=== PATIENT | female | born 2005 | race African-American/Black ===

== ENCOUNTER 2025-06-14 16:23 | Emergency (ER) | payer OTHER, SELFPAY ==
--- OUTSIDE RECORDS SUMMARY | 2024-07-07 06:00 | XMS_ITS ---
Author Organization [facility] vices Address [address] [place], [place] [address] Care Team Providers Care Sand Buffer Name Role Phone Jazmin Garg Primary Care Provider [phone] Kassi James [phone] REASON FOR VISIT 3 mo Asthma Social History Sex Assigned At : Social History Observation Description Sex Assigned At Female Encounters Encounter Location Date Provider Diagnosis Main [address] [place] [address] 07/07/2024 Jazmin Garg Plan Of Treatment No Information Progress Notes * Windy ESTRELLA DDOB: 4 (20 yo F)Acc No.[id number]:07/07/2024 Medical Note Patient: Windy Romero :?LEATHA JaraCDOB:2005???Age:19 Y ???Sex:FemaleDate:07/07/2024hone:[phone]:[address] [place], [place] Subjective: * Chief Complaints: * 3 mo Asthma Billing Information: * Procedure Codes: * Electronic signature of ELENITA Jara on 06/14/2025 at 05:06 PM EST Sign off status: Pending * Provider: ELENITA Coronado Date: 09/07/2023 Generated for Printing/Faxing/eTransmitting on:?06/14/2025 05:06 PM EST
--- OUTSIDE RECORDS SUMMARY | 2024-07-20 06:00 | XMS_ITS ---
Author Organization [facility] vices Address [address], [place] [address] Care Team Providers Care Press Operator Apprentice Name Role Phone Jazmin Garg Primary Care Provider Kassi James Unavailable [phone] Mae Goncalves Unavailable [phone] REASON FOR VISIT F/U- Asthma Social History Sex Assigned At : Social History Observation Description Sex Assigned At Female Encounters Encounter Location Date Provider Diagnosis Main [address] [address] 07/20/2024 Mae Goncalves Plan Of Treatment No Information Progress Notes * Windy ESTRELLA DDOB: [birth year] (20 yo F)Acc No.[id number]:07/20/2024 Medical Note Patient: Windy Romero :?Mae GoncalvesDOB:2005???Age:19 Y???Sex: FemaleDate:07/20/2024Phone:[phone]:[address] [facility]Pcp:Jazmin Garg Subjective: * Chief Complaints: * F /U- Asthma Billing Information: * Procedure Codes: * Electronic signature of SANAM Irene on 06/14/2025 at 05:05 PM ESTSign off status: Pending * Provider: Naren Goncalves Date: 0 07/20/2024 Generated for Printing/Faxing/eTransmitting on:?06/14/2025 05:05 PM EST
--- OUTSIDE RECORDS SUMMARY | 2025-04-13 04:15 | XMS_ITS ---
Author Organization [facility] vices Address [address] [place], [place] [address] Care Team Providers Care Sausage Machine Operator Name Role Phone Jazmin Garg Primary Care Provider Kassi James [phone] REASON FOR VISIT Wellness Social History Sex Assigned At : Social History Observation Description Sex Assigned At Female Encounters Encounter Location Date Provider Diagnosis Main [address], [place] [address] 04/13/2025 Jazmin Garg Plan Of Treatment No Information Progress Notes * Windy ESTRELLA DDOB: [birth year] (20 yo F)Acc No.[id number]:04/13/2025 Progress Notes Patient: Windy Romero :?LEATHA JaraCDOB:2005???Age:19 Y ???Sex:FemaleDate:04/13/2025Phone:[phone]:[address] [facility] [address] [place], [place] Subjective: * Chief Complaints: * W ellness * Electronic signature of ELENITA Jara on 06/14/2025 at 05:06 PM EST Sign off status: Pending * Provider: ELENITA Coronado Date: Generated for Printing/Faxing/eTransmitting on:?06/14/2025 05:06 PM EST
--- OUTSIDE RECORDS SUMMARY | 2025-05-15 10:00 | XMS_ITS ---
Author Organization [facility] vices Address [address], [place] [address] Care Team Providers Care Epic Stork Specialists Name Role Phone Jazmin Garg Primary Care Provider [phone] Kassi James [phone] REASON FOR VISIT Wellness Social History Sex Assigned At : Social History Observation Description Sex Assigned At Female Encounters Encounter Location Date Provider Diagnosis Main [address], [place] [address] 05/15/2025 Jazmin Garg Plan Of Treatment No Information Progress Notes * Windy ESTRELLA DDOB: [birth year] (20 yo F)Acc No.[id number]:05/15/2025 Medical Note Patient: Windy Romero :?LEATHA JaraCDOB:2005???Age:19 Y ???Sex:FemaleDate:05/15/2025Phone:[phone]:[address] [facility] [place], [place] Subjective: * Chief Complaints: * W ellness Billing Information: * Procedure Codes: * Electronic signature of ELENITA Jara on 06/14/2025 at 05:06 PM EST Sign off status: Pending * Provider: ELENITA Coronado Date: 07/15/2024 Generated for Printing/Faxing/eTransmitting on:?06/14/2025 05:06 PM EST
[2025-06-14 16:29] VITALS: PULSE 75; TEMP 36.6; O2SAT 96; BMI 25.0
--- NOTE | 2025-06-14 16:41 | ED.PREGNANC1 ---
HPI - General Chief complaint: Nausea/Vomiting/Diarrhea Stated complaint: nausea, vomiting, Time Seen by Provider: 06/14/25 16:42 Source: patient Mode of arrival: walk-in Limitations: no limitations History of Present Illness HPI Narrative: Patient complains of nausea and vomiting in . Patient's last menstrual period was in April. She has an ultrasound scheduled this Thursday. After the ultrasound she will follow-up with [facility]. Patient has never been before. She does not know what her blood type is. She denies any urinary burning frequency or urgency. She has clear vaginal discharge. She denies any vaginal odor. Patient states she was seen at [facility] a few weeks ago. She was given Zofran tablets that dissolved. She states they helped a little. She is out of them. She states sometimes she would still vomit even when she used them. She is currently living with her sister. Onset (ago): week(s) Pain Consistency: Reports intermittent Severity: mild Relieving factors: Reports none Exacerbating factors: Reports eating Vaginal discharge: Reports clear Vaginal bleeding: Reports none Date of last menstrual period: April Patient : Yes care: none Related Data : 0 Para: 0 Total number of abortions (spontaneous and elective): 0 Previous Rx's ?Medication ?Instructions ?Recorded bacitracin 500 unit/gram eye 0.25 inch ophthalmic (eye) Q8H 06/14/25 ointment stye #3.5 grams metoclopramide HCl 10 mg tablet 10 mg PO Q6H PRN nausea and 06/14/25 vomiting #20 tabs ondansetron 4 mg disintegrating 4 mg PO Q6H PRN nausea and 06/14/25 tablet vomiting #20 tabs Allergies Allergy/AdvReac Type Severity Reaction Status Date / Time No Known Drug Allergies Allergy Verified 06/14/25 16:32 Review of Systems ROS Status of ROS 10 or more systems reviewed and unremarkable except as noted in history and below Gastrointestinal Reports: nausea and vomiting PFSH PFSH Social History Little interest or pleasure in doing things: not at all Feeling down, depressed, or hopeless: not at all Exam Constitutional Vital Signs, click to edit/add: Last Vital Signs Temp 97.9 F 06/14/25 16:29 Pulse 75 12/03/25 16:29 Resp 14 06/14/25 16:29 BP 128/59 06/14/25 16:50 Pulse Ox 96 06/14/25 16:29 O2 Del Method Room Air 06/14/25 16:29 Documenting provider has reviewed patient's vital signs: yes Common normals: no apparent distress, average body habitus, oriented x3, no limitations, healthy appearing, alert and well nourished General appearance: cooperative, comfortable, well kempt and well developed Orientation/consciousness: Yes awake, Yes oriented to person, Yes oriented to place and Yes oriented to time HENMT Common normals: normocephalic, head/scalp atraumatic, hearing grossly normal bilaterally, external ears normal, EACs normal, TMs normal bilaterally and external nose normal Head and scalp: normal to inspection, normocephalic and atraumatic Face and sinus: normal facial exam Nose: external nose normal External ear: external ears normal Tympanic membrane: TMs normal bilaterally Mouth: oral and palatal mucosa normal Throat: posterior oropharynx normal Eye Common normals: PERRL General eye: normal appearance of both eyes (Pt has stye R lower lid) Course Course Hospital Course: The patient was interviewed and examined. The appropriate ER workup was initiated. Patient had saline lock established. Patient is given 1 L normal saline wide open. Patient was given ondansetron intravenously. After about half liter fluids, patient was able to tolerate p.o. intake. I discussed with the patient the plan for ODT ondansetron at discharge. I discussed with her once she has been able to tolerate that, she can then take oral Reglan as needed for additional nausea. She was in agreement with this plan of care. Patient has upcoming ultrasound on Thursday and then follow-up with [facility] after that. In regards to the hordeolum on the right eye, I discussed with her the use of antibiotic ointment for treatment of that. Patient voiced understanding for care of that problem. Upon completion of fluids, patient is feeling much better and is ready to be discharged to home. Patient will be discharged home in stable condition. She is to return to the emergency department for any further problems or concerns. Vital Signs Vital signs: Vital Signs Temperature 97.9 F 06/14/25 16:29 Pulse Rate 75 06/14/25 16:29 Respiratory Rate 14 06/14/25 16:29 Pulse Oximetry 96 06/14/25 16:29 Oxygen Delivery Method Room Air 06/14/25 16:29 Temperature 97.9 F 06/14/25 16:29 Pulse Rate 75 06/14/25 16:29 Respiratory Rate 14 06/14/25 16:29 Blood Pressure 128/59 06/14/25 16:50 Pulse Oximetry 96 06/14/25 16:29 Oxygen Delivery Method Room Air 06/14/25 16:29 MDM - OB/Uterine Contractions Lab Data Labs: Lab Results 06/14/25 Range/Units 17:05 WBC 13.2 H (4.0-11.0) 10^3/uL RBC 4.06 L (4.20-5.40) 10^6/uL Hgb 12.8 (12.0-16.0) g/dL Hct 37.6 (36.0-48.0) % MCV 92.6 (81.0-99.0) fL MCH 31.5 (26.7-34.0) pg MCHC 34.0 (29.9-35.2) g/dL RDW 11.9 (11.0-15.0) % Plt Count 310 (150-450) 10^3/uL MPV 9.5 (9.5-13.5) fL Neut % (Auto) 79.1 H (43.0-75.0) % Lymph % (Auto) 16.0 L (20.5-60.0) % [place] % (Auto) 4.2 (1.7-12.0) % Eos % (Auto) 0.1 L (0.9-7.0) % Baso % (Auto) 0.2 (0.2-2.0) % Neut # (Auto) 10.4 H (1.4-6.5) 10^3/uL Lymph # (Auto) 2.1 (1.2-3.8) 10^3/uL [place] # (Auto) 0.6 (0.3-0.8) 10^3/uL Eos # (Auto) 0.0 (0.0-0.7) 10^3/uL Baso # (Auto) 0.0 (0.0-0.1) 10^3/uL Abs Immat Gran (auto) 0.05 H (0.00-0.03) 10^3/uL Imm/Tot Granulo (auto) 0.4 (0.0-0.5) % Sodium 136 (136-145) mmol/L Potassium 4.0 (3.5-5.1) mmol/L Chloride 100 (98-107) mmol/L Carbon Dioxide 28.0 (21.0-32.0) mmol/L Anion Gap 12.0 BUN 8.0 (7.0-18.0) mg/dL Creatinine 0.67 (0.55-1.02) mg/dL Est GFR ( Amer) >60 (>=60 mL/min/1.73m^2) Est GFR (Non-Af Amer) >60 (>=60 mL/min/1.73m^2) BUN/Creatinine Ratio 11.9 Glucose 82 (74-106) mg/dL Calcium 9.9 (8.5-10.1) mg/dL Total Bilirubin 0.7 (0.2-1.0) mg/dL AST 14 L (15-37) U/L ALT 17 (14-59) U/L Alkaline Phosphatase 62 (46-116) U/L Total Protein 8.7 H (6.4-8.2) g/dL Albumin 4.6 (3.4-5.0) g/dL Globulin 4.1 g/dL Albumin/Globulin Ratio 1.1 Discharge Plan Discharge Chief Complaint: Nausea/Vomiting/Diarrhea Clinical Impression: Hyperemesis gravidarum, Hordeolum externum of right lower eyelid Patient Disposition: Home, Self-Care Time of Disposition Decision: 19:40 Condition: Good Mode of Transportation: Private Vehicle Prescriptions / Home Meds: New ondansetron 4 mg tablet,disintegrating 4 mg PO Q6H PRN (Reason: nausea and vomiting) Qty: 20 0RF metoclopramide HCl 10 mg tablet 10 mg PO Q6H PRN (Reason: nausea and vomiting) Qty: 20 0RF bacitracin 500 unit/gram ointment 0.25 inch ophthalmic (eye) Q8H Qty: 3.5 0RF Print Language: Ukrainian Instructions: Hyperemesis Gravidarum (ED), Stye (ED)
[2025-06-14 16:50] VITALS: BP 128/59
--- OUTSIDE RECORDS SUMMARY | 2025-06-14 17:06 | XMS_ITS | Patient Health Record ---
Author Organization [facility] Address [address] [place] [address] Care Team Providers Care Performance Test Engineer Name Role Phone Jacob Og Primary Care Provider Reason For Referral No Information Plan Of Treatment No Information Insurance Providers Payer Name Payer Address Payer Phone Subscriber Number Group Number Insured Name Patient Relationship to Insured Coverage Start Date Coverage End Date [place] [place] [employer] [address] [place] [address] [id number] DELORES Gloria - patient is the [id number] [facility]PO [address] [place] [id number], VIOLASelf - patient is the [id number] [place]PO [address] [address] [place] [id number], VIOLASelf - patient is the [id number] Wrap [facility] [place] [place] [id number], VIOLASelf - patient is the [id number]
--- OUTSIDE RECORDS SUMMARY | 2025-06-14 17:07 | XMS_ITS | Patient Health Record ---
Author Organization [facility] Address [address] [place], [place] [id number] Care Team Providers Care Cissp Name Role Phone Jazmin Garg Primary Care Provider [phone] Kassi James Unavailable [phone] Mae Goncalves Unavailable [phone] Herman, Micheline Unavailable [phone] Allergies No Known Allergies Reason For Referral Reason tinea capitis Diagnosis 1 Tinea capitis (B35.0 ) Referral Organization Main Referring Provider First Name Jazmin Referring Provider Last Name Forest Referring Provider Speciality Nurse Prac titioner Referred Provider Dermatology [facility] Referred Provider Specialty Dermatology General Notes Poornima Barrett 12:50:50 PM >Office called stating they do no take pt. insurance. , Magnolia Rosales 07/12/2024 09:04:41 AM >faxed to Dermatology PartnersBobby Adrienne 07/18/2024 08:29:12 AM >{{TOFIRSTNAME}} This is [facility] following up on an outstanding referral that was ordered by your provider. Please call our office at , so we can _update our records.Bobby Adrienne 07/25/2024 04:32:23 PM >No response from patient, closing referral per protocol. Referral Priority Routine Immunizations Vaccine Route Administration Date Status Comme nts *DTaP (Infanrix)-VFC OTH Other/Miscellaneous 2004 Administered Status:Complete ,Reason:Given or N/A , karenl (11/25/2005) pediarix given Sequence #2 *DTaP (Infanrix)-VFC OTH Other/Miscellaneous 2004 Administered Status:Complete ,Reason:Given or N/A , karenl (11/25/2005) pediarix given Sequence #3 *DTaP (Infanrix)-VFC OTH Other/Miscellaneous 01/23/2005 Administered Status:Complete ,Reason:Given or N/A , karenl (11/25/2005) pediarix given Sequence #4 *DTaP (Infanrix)-VFC IM Intramuscular 09/23/2005 Administered Status:Complete ,Reason:Given or N/A , nelly (09/23/2005) vis and after shots info given, 20 min. wait c no reaction noted Automatic Clipper And Stripper: [employer] Parent/Guardian : mom *Hep B, adolescent or pediatric (11-19), 3 dose schedule-VFC Unknown 2004 Administered *Hep B, adult dosage-PrivateOTH Other/Egmzifmdstelv17/28/2005Administered Status:Complete ,Reason:Given or N/A , karenl (11/25/2005) pediarix given. Hep B given at [facility] on 2004 *Hep B, adult dosage-PrivateOTH Other/Gkydbtvhgicja49/12/2005Administered Status:Complete ,Reason:Given or N/A , karenl (11/25/2005) pediarix given Sequence #2*Hep B, adult dosage-PrivateOTH Other/Fqixkapvtudpe33/14/2005 AdministeredStatus:Complete ,Reason:Given or N/A , karenl (11/25/2005) pediarix given Sequence #3*Hib (PRP-T), 4 dose schedule-FSCMouhnyn82/28/2005Administered *HPV9 (human papillomavirus), nonavalent-OonkmfgQpvdjqj10/13/2017Administered *HPV9 (human papillomavirus), nonavalent-WmxozazSkxvtaw38/20/2018Administered *Meningococcal Mcv4p (Menactra)-UESNtqwgdh31/13/2017Administered*MMR-VFCOTH Other/Yovcakmulhdyr80/23/2005AdministeredStatus:Complete ,Reason:Given or N/A *Tdap (Adacel)-INXQssrvlm24/13/2017Administered*Varicella (Varivax)-VFCOTH Other/Hpuupyhyamglp94/23/2005AdministeredStatus:Complete ,Reason:Given or N/A DTaP-Hep B-IPVOTH Other/Spqhvkbmkkdcj95/28/2005AdministeredStatus:Complete ,Reason:Given or N/A , virgil (11/25/2005) pediarix givenDTaP-Hep B-IPVOTH Other/Qasvtmkjvxyqa62/12/2005AdministeredStatus:Complete ,Reason:Given or N/A , virgil (11/25/2005) pediarix given Sequence #2DTaP-Hep B-IPVOTH Other/Wrxgrxlipxjcw65/14/2005AdministeredStatus:Complete ,Reason:Given or N/A , virgil (11/25/2005) pediarix given Sequence #3Hib (HbOC), 4 dose scheduleOTH Other/Fwyunxrcxcrwv03/28/2005AdministeredStatus:Complete ,Reason:Given or N/A , Sequence #2Hib (HbOC), 4 dose scheduleOTH Other/Gtipddoiaeydi83/12/2005 AdministeredStatus:Complete ,Reason:Given or N/A , Sequence #3Hib (HbOC), 4 dose scheduleOTH Other/Jzvdmdtkfbwhp01/14/2005AdministeredStatus:Complete ,Reason:Given or N/A , Sequence #4Hib (HbOC), 4 dose scheduleIM Intramuscular 09/23/2005dministeredStatus:Complete ,Reason:Given or N/A , Automatic Clipper And Stripper: [employer] Parent/Guardian: momInfluenza (whole)Pbutjtq4106/04/2005 AdministeredInfluenza (whole)Bxjqusm4306/13/2005AdministeredPneumococcal 7-valent Conjugate-ZDRVywcsys45/12/2005AdministeredPneumococcal conjugate PCV 7OTH Other/Syzcybzwerozc52/28/2005AdministeredStatus:Complete ,Reason:Given or N/A Pneumococcal conjugate PCV 7OTH Other/Rhvcsprstznzi38/12/2005Administered Status:Complete ,Reason:Given or N/A , Sequence #2Pneumococcal conjugate PCV 7 OTH Other/Rfofxsveqdbmx80/14/2005AdministeredStatus:Complete ,Reason:Given or N/A , Sequence #3Pneumococcal conjugate PCV 7IM Tofliacsebctr55/14/2006 AdministeredStatus:Complete ,Reason:Given or N/A , Automatic Clipper And Stripper: [employer] Parent/Guardian: mom Sequence #4 Social History Tobacco Use: Social History Observation Description Date Details (start date - stop date) Never Smoker NA - NA Sex Assigned At : Social History Observation Description Sex Assigned At Female Social History Social DeterminantsSocial InfoQuestionAnswerNotesPRAPAREDate Completed/Updated: 09/29/2023patient entered dataWhat is your current housing situation?I have housingpatient entered dataAre you worried about losing your housing?No patient entered dataWhat is the highest level of school that you have finished?High school diploma or GEDpatient entered dataWhat 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 Check all that applyI do not have problems meeting my needsHas lack of transportation kept you from medical appointments, meetings, work or from getting things needed for daily living?NoHow often do you see or talk to people that you care about and feel close to? (For example: talkingto friends on the phone, visiting friends or family, going to tenriism or club meetings)Less than once a weekpatient entered dataHow stressed are you? Stress is when someone feels tense, nervous, anxious, or can't sleep at night because their mind is troubledA little bitpatient entered dataIn the past year have you spent more than 2 nights in a row in a retirement, correction, chcf center, orjuvenile correctional facility?Nopatient entered dataAre you a refugee?Nopatient entered dataWhat country are you from?[place] patient entered dataDo you feel physically and emotionally safe where you currently live?Yespatient entered dataIn the past year, have you been afraid of your partner or ex-partner?Nopatient entered dataPRAPARE Score:7Sexual History:Social InfoQuestionAnswerNotesFamily PlanningAre you or your partner planning on becoming in the next year if not already ?No? What type of contraception are you using?NonePCMH and UDS DemographicsSocial Info QuestionAnswerNotesPrimary Care Medical Home QuestionsDo you have any barriers to learning?Nonepatient entered dataWhat is your preferred method of learning?Watching a videopatient entered dataHow often do you need to have someone help you read instructions?Neverpatient entered data Drugs/Alcohol/Caffeine:Social InfoQuestionAnswerNotesDrugsHave you used drugs other than those for medical reasons in the past 12 months?NoCAGE-AID Questionnaire (2018 Edition)Have you ever felt that you ought to cut down on your drinking or drug use?Nopatient entered dataHave people annoyed you by criticizing your drinking or drug use?Nopatient entered dataHave you ever felt bad or guilty about your drinking or drug use?Nopatient entered dataHave you ever had a drink or used drugs first thing in the morning to steady your nerves or to get rid of a hangover?Nopatient entered dataCAGE-AID Score0 InterpretationNegativeCaffeineIntake:noneTobacco Use:Social InfoQuestionAnswer NotesTobacco Control (Standard)Tobacco use:NonsmokerTobacco Use/SmokingTobacco use:nonsmokerpatient entered dataAdditional DetailsCategorySocial InfoOptions DetailsMiscellaneous:Culture/Language BarrierNoEducation LevelIn Grade 12Safety Patient feels safe in relationshipsYesDrugs/Alcohol/Caffeine:Do you drink alcohol?No Problems Problem Type SNOMED Code ICD Code Onset Dates Problem Status W/U Status Risk Notes Problem Mild intermittent asthma (133233 007) Mild intermittent asthma without complication (J45.20) ActiveconfirmedProblemPrimary dysmenorrhea (48646071)Primary dysmenorrhea (N94.4)ActiveconfirmedProblemAllergic rhinitis (83703498)Allergic rhinitis (J30.9)03/23/2007ctiveconfirmedProblemAsthma without status asthmaticus (41156584)Asthma, exogenous (J45.909)InactiveconfirmedDescription:Extrinsic asthmaProblemLate period (52566952)Late period (N92.6)InactiveconfirmedProblem Dermatophytosis (03259293)Dermatophytoses (B35.9)10/25/2007Problem resolved confirmedDescription:DermatophytosisProblemUmbilical hernia (639915084)Hernia, umbilical (K42.9)12/23/2006Problem resolvedconfirmedDescription:Umbilical hernia ProblemEmesis (073163591)Emesis (R11.10)Problem resolvedconfirmedComment:check UGI study and USG abd,Description:VomitingProblemAcute upper respiratory infection (61579356)Acute upper respiratory infection (J06.9)12/15/2007Problem resolvedconfirmed Comment:resolved. Child has a Hx of Asthma : f/u in 3-4 weeks to recheck Asthma, ProblemChronic infection of sinus (38037899)Chronic infection of sinus (J32.9) 11/20/2005Problem resolvedconfirmedDescription:Chronic sinusitisProblemAbdominal pain (25899515)Abdominal pain (R10.9)Problem resolvedconfirmedComment:DDx: GERD vs other pathology like subacute appendicitis,ProblemAirway hyperreactivity (048904183)Airway hyperreactivity (J45.909)11/20/2005Problem resolvedconfirmed Comment:mild, per Hx. Was started on daily Singulair . Is doing well on that Proair is only as needed, and has not needed it in the last month. She needs one inhaler for schoolwhen she does the 1 mile runs. Plan continue daily Singulair Proair prn : if starts requiring proair often : RTC f/u in 3-4 months,Description:Asthma ProblemDisease caused by virus (70063494)Disease caused by virus (B34.9) 11/19/2006Problem resolvedconfirmedComment:increase fluids, continue tylenol prn; treat symptoms with medications; if pt persists to have reduced activity/lethargy - go to ER as she may require IV fluids, MVU of plan,Description:ViralinfectionProblemAcute purulent otitis media (354275994) Acute purulent otitis media (H66.009)09/02/2005Problem resolvedconfirmed Description:Acute suppurative otitis mediaProblemAcute pharyngitis (527152385) Acute pharyngitis (J02.9)09/22/2007Problem resolvedconfirmedProblemConstipation (47775190)CN (constipation) (K59.00)09/23/2005Problem resolvedconfirmed Description:ConstipationProblemPrescription renewal (290655718)Medication refill (Z76.0)Problem resolvedconfirmed Comment:Will restart Singulair and Albuterol HFA as needed Told Dad, I need to look through the chart and see which medication she has been taking consistently. Once she has recovered from this viral illness, will RTC for an ASthma appointment., ProblemAcute tonsillitis (28939550)Acute infective tonsillitis (J03.90) 04/05/2008Problem resolvedconfirmedDescription:Acute tonsillitisProblemE. coli enteritis (A04.4)05/07/2006Problem resolvedconfirmedDescription:Intestinal infection due to E. coliProblemUrinary tract infectious disease (26496126) Infection of urinary tract (N39.0)01/30/2009Problem resolvedconfirmed Comment:Instructed mother to give all medication as prescribed, increase oral fluids, return if symptoms worsen or do not get better. Mother verbalizes and agrees with plan of care. DIscussed hygiene, using wet wipes to clean area better, improving constipation with change in diet. no need for further investigation, unless recurrence noted,Description:Urinary tract infection ProblemPneumonia (148269842)PNA (pneumonia) (J18.9)09/03/2006Problem resolved confirmedDescription:Pneumonia Vital Signs Heart Rate 66 /min 05/29/2025 Jose Sharpe 05/29/2025 09:34:15 AM EST > Temperature 97.6 degrees Fahrenheit 05/29/2025 Mckayla Mao 05/29/2025 09:34:15 AM EST > Respiratory Rate 18 /min 05/29/2025 Filiberto Sharpe 05/29/2025 09:34:15 AM EST > Blood pressure diastolic 72 mm Hg 05/29/2025 Mckayla Coombs 05/29/2025 09:34:15 AM EST > Oximetry 98 % 05/29/2025 Jose Sharpe 05/29/2025 09:34:15 AM EST > Height-cm 135.89 cm 05/29/2025 Jose Sharpe 05/29/2025 09:34:15 AM EST > Weight-kg 68.22 kg 05/29/2025 Jose Sharpe 05/29/2025 09:34:15 AM EST > Height 64.75 in 05/29/2025 Jose Sharpe 05/29/2025 09:34:15 AM EST > BMI Percentile 73.61 % 06/27/2024 Rajat Rosales 06/27/2024 11:02:32 AM EST > Blood pressure systolic 113 mm Hg 05/29/2025 Mckayla Mao 05/29/2025 09:34:15 AM EST > Weight 150.4 lbs 05/29/2025 Jose Sharpe 05/29/2025 09:34:15 AM EST > BMI 25.22 kg/m2 05/29/2025 Jose Sharpe 05/29/2025 09:34:15 AM EST > Encounters Encounter Location Date Provider Diagnosis Main [address], [place] [id number] 06/27/2024 Jazmin Garg Tinea capitis B35. 0 and BMI 24.0-24.9, adult Z68.[address] [place] [id number] 05/29/2025 Kassi James Wellness examinati on Z00.00 ; BMI 25.0-25.9,adult Z68.25 ; Dietary counseling Z71.3 and Exercise counseling Z71.82 Assessments Encounter Date Diagnosis (ICD Code) Assessment Notes Treatment Notes Treatment Clinical Notes Section Notes 06/27/2024 Tinea capitis (ICD-10 - B35.0) Will start ketoconazole shampoo. Pt is also requesting referral to Dermatology. 05/29/2025Wellness examination (ICD-10 - Z00.00) Completed pt's Yearly Preventative Wellness Exam. Pt advised on healthy diet and exercise. Encouraged to limit fried, fatty, and processed foods and eat healthier options such as fruits, vegetables, and lean meats. Patient had a positive test. Encouraged to call OBGYN and start vitamins 5BMI 25.0-25.9,adult (ICD-10 - Z68.25)4BMI 24.0-24.9, adult (ICD-10 - Z68.24)Body Mass Index: Care Instructions material was published 05/29/2025Dietary counseling (ICD-10 - Z71.3)Encoruaged eating a healthy, balanced diet and increasing activity level by engaging in exercise atleast 30 min x atleast 5 days a week.05/29/2025Exercise counseling (ICD-10 - Z71.82)The patient was encouraged to increase exercise weekly to at least 3-4 times per week for 30-45 minutes for each session. Exercise may include but is not limited to walking, jogging, running, resistance training, water aerobics and strength training. Benefits of increasing exercise regimens may include healthier lifestyle, stronger bone health, diminished aches and pain, and better metabolism. Plan Of Treatment No Information Insurance Providers Payer Name Payer Address Payer Phone Subscriber Number Group Number Insured Name Patient Relationship to Insured Coverage Start Date Coverage End Date [facility] [address] [place] [address] [id number] Vanesa Brito - patient is the [id number] 2023Medicaid LOCATED WITHIN [facility] after [address] [place], [place] [id number], ViolaSelf - patient is the insured 2023 Medical (General) History Medical History History ICD Code Hernia, umbilical Airway hyperreactivityPNA (pneumonia)Surgical History Surgery Date(Month/Year)
[2025-06-14 17:14] LABS: Hematocrit 37.6 % (36.0-48.0); Hemoglobin 12.8 g/dL (12.0-16.0); Immature Granulocytes Abs Auto 0.05 10^3/uL (0.00-0.03); Immature Granulocytes Pct Auto 0.4 % (0.0-0.5); Lymphocytes Absolute Auto 2.1 10^3/uL (1.2-3.8); Mean Corpuscular HGB Conc 34.0 g/dL (29.9-35.2); Mean Corpuscular Hemoglobin 31.5 pg (26.7-34.0); Mean Corpuscular Volume 92.6 fL (81.0-99.0); Platelet Count 310 10^3/uL (150-450); Red Blood Count 4.06 10^6/uL (4.20-5.40); White Blood Count 13.2 10^3/uL (4.0-11.0)
[2025-06-14] MEDS: 0.9 % SODIUM CHLORIDE 1,000 ML 1000 ML IV (17:23)
[2025-06-14 17:36] LABS: Alanine Aminotransferase 17 U/L (14-59); Albumin Globulin Ratio 1.1; Albumin Level 4.6 g/dL (3.4-5.0); Alkaline Phosphatase 62 U/L (46-116); Anion Gap 12.0; Aspartate Amino Transferase 14 U/L (15-37); Blood Urea Nitrogen 8.0 mg/dL (7.0-18.0); Calcium 9.9 mg/dL (8.5-10.1); Carbon Dioxide 28.0 mmol/L (21.0-32.0); Chloride 100 mmol/L (98-107); Estimated GFR (African America >60 (>=60 mL/min/1.73m^2); Estimated GFR (Non-African Ame >60 (>=60 mL/min/1.73m^2); Globulin 4.1 g/dL; Glucose 82 mg/dL (74-106); Potassium 4.0 mmol/L (3.5-5.1); Sodium 136 mmol/L (136-145); Total Protein 8.7 g/dL (6.4-8.2)
--- NOTE | 2025-06-14 18:43 | PC.NURSE ---
pt feels better at this time, oral challenge started at this time with water
[2025-06-14 19:53] VITALS: BP 122/62; PULSE 82; O2SAT 98
== END 2025-06-14 19:56 | disposition home or self-care (01) ==
PROVIDERS: Physician Assistant; Emergency Provider Emergency Medicine
DX: O21.0 Mild hyperemesis gravidarum (principal); Z3A.00 Weeks of gestation of pregnancy not specified; O99.891 Other specified diseases and conditions complicating pregnancy; H00.012 Hordeolum externum right lower eyelid
CPT/HCPCS: 36415; 80053; 85025; 96361; 96374; 99285; J2405

== ENCOUNTER 2025-07-08 21:52 | Emergency (ER) | payer OTHER, SELFPAY ==
--- OUTSIDE RECORDS SUMMARY | 2017-09-29 05:50 | XMS_ITS | Continuity of Care Document ---
Author Organization [facility] rtment Address [address] [place] [address] Phone Care Team Providers Care Compensation Consultant Name Role Phone Davis SALAZAR, Marci Unavailable Unavailable Allergies, Adverse Reactions, Alerts Substance Reaction Status Criticality No Known Allergies Active No Inform ation Problems Condition Type Effective Dates (start - stop) Clini shahbaz Status Comments No Known Problems Procedures Procedure Date IMMUNIZATION ADMIN FLU VAC NO PRSV 4 NERI 3 YRS+ [facility] 2017 IMMUNIZATION ADMIN EACH ADD Hpv vaccine non valent im [facility] 8 IMADM ANY ROUTE 1ST VAC/TOX FLU VAC NO PRSV 4 NERI 3 YRS+ [facility] 2017 Hpv vaccine non valent im [facility] 8 OFFICE/OUTPATIENT VISIT, EST IMMUNIZATION ADMIN Hpv vaccine non valent im [facility] 7 IMMUNIZATION ADMIN MCV4 11-18 (2-10HR) [facility] IMMUNIZATION ADMIN Tdap Boostrix 10-18 [facility] Hpv vaccine non valent im [facility] 7 MCV4 11-18 (2-10HR) [facility] Tdap Boostrix 10-18 [facility] OFFICE/OUTPATIENT VISIT, EST Advance Directives Directive Yes / No Effective Date File Name No Information Encounters Encounter Description Practice Location Reason(s) For Visit Diagnoses Date Provider Providers Copied on Encounter OFFICE/OUTPA TIENT VISIT, EST [facility] t, [address] [place], [place], [id number] , [place] tel:[phone] [facility] Dept Immunization immunizations (chief complaint) Encounter for immunization 8 Davis Covarrubias. [address] [place], [place], [id number] , [place]. tel: [phone] OFFICE/OUTPA TIENT VISIT, EST [facility] t, [address] [place], [place], [id number] , [place] tel: [phone] [facility] Dept Immunization Encounter for immunization 7 Davis Covarrubias. [address] [place], [place], [id number] , [place]. tel: [phone] Family History Family Member Type Diagnosis Age At Onset No Information Immunizations Vaccine Date Status Comments Influenza, injectable, quadrivalent, preservative free, 3 yrs or older administered Source: New Immuniz ation Record HPV (9-valent) administered Source: New I mmunization Record HPV (9-valent) administered Source: New I mmunization Record MCV4 administered Source: New Imm unization Record Tdap administered Source: New Imm unization Record Payers Payer name Insurance type Covered democrat ID Authoriza tion(s) No Information Social History Type Description Quantity Date Captured Comments Alcohol Use Details Unknown Caffeine Use Details Unknown Tobacco Use Status No Information Smoking Status No Information Sex Female Gender Identity Female Chief Complaint And Reason For Visit From encounter dated '09/29/2017 10:50'. immunizations (chief complaint) Reason For Referral Reason For Referral No Information History Of Present Illness Encounter Date Complaint History Of Prese nt Illness immunizations Functional Status Date Functional Assessmen t No Information Instructions Date Instruction Additional Infor mation Education Materials Provided Rel ated to Encounter for immunization Education Materials Provided Rel ated to Encounter for immunization Assessments Type Assessment Date assessment Encounter for immunization Patient Care Teams Name Effective Dates (start - stop) Status Members No Information
--- OUTSIDE RECORDS SUMMARY | 2024-03-16 06:15 | XMS_ITS | Continuity of Care Document ---
Author Organization [facility] Address [address] [place] [address] Phone Care Team Providers Care Air Brush Operator Name Role Phone Lyndsay Flowers DDS Unavailable Unavailable Allergies, Adverse Reactions, Alerts Substance Reaction Status Criticality No Known Allergies Active No Inform ation Procedures Procedure Date Nutrit Couns For Control Of [place] Dis Mar Resin Composite 3s; Posterior 4 Resin Composite 2s; Posterior 4 Intraoral-periapical 1st Film 4 Resin Composite 3s; Posterior 4 Resin Composite 2s; Posterior 4 High Risk Prophylaxis Adult Topical Application Of Fluoride Varnish Nutrit Couns For Control Of [place] Dis Feb Oral Hygiene Instruction Bitewings Four Films Panoramic Film Oral Hygiene Instruction Comp Oral Eval New/estab Patient 2023 Advance Directives Directive Yes / No Effective Date File Name No Information Encounters Encounter Description Practice Location Reason(s) For Visit Diagnoses Date Provider Providers Copied on Encounter [facility], [address] [place], [place], [id number], [place] tel:[phone] Dental Clinic fill (chief complaint) Encounter for screening for dental disorders Kristie Umana. . tel:[phone] [facility], [address] [place] [address], [id number], [place] tel:[phone] Dental Clinic filling (chief complaint) Encounter for screening for dental disorders Kristie Umana. . tel:[phone] [facility], [address] [place] [address], [id number], tel:[phone] Dental Clinic [place] (chief complaint) Encounter for screening for dental disorders Kristie Umana. . tel:[phone] [facility], [address] [place] [address], [id number], [place] tel:[phone] Dental Clinic [place] (chief complaint) Encounter for screening for dental disorders Kristie Umana. . tel:[phone] Family History Family Member Type Diagnosis Age At Onset No Information Payers Payer name Insurance type Covered green party ID Erlinda dowling(anne) [place] [facility] [employer] [id number] D Medicaid ap - [facility] [id number] Social History Type Description Quantity Date Captured Comments Alcohol Use Details Unknown Caffeine Use Details Unknown Tobacco Use Status No Information Smoking Status No Information Sex Female Sexual Orientation Straight or heterosexual Gender Identity Female Vital Signs Date / Time: Height Weight BMI Pulse Rate Blood Pressure Temperature Respiratory Rate Body Surface Area Head Circumference Head Circ. Percentile Wt./Jay. Percentile BMI percentile Pulse Ox Inhaled Ox 11:21 AM 65.00 in 71 /min 108/69 mm[Hg] 97.50 F Chief Complaint And Reason For Visit From encounter dated '03/16/2024 11:15'. fill (chief complaint) Reason For Referral Reason For Referral No Information Plan Of Treatment Date Type Action Status Goal Depression screening. Due on due Goal RLP. Due on due Goal Hepatitis C screening. Due o n due Goal Influenza vaccine. Due on due Goal Tdap Vaccine. Due on 2023 due Goal Tdap. Due on due Goal Unhealthy drug use screening . Due on due Goal PRAPARE ASSESSMENT. Due on S due Goal Hep A. Due on du e Goal Tdap Vaccine. Due on 2023 due Goal Influenza vaccine. Due on due Goal Tdap. Due on due Goal Depression screening. Due on due Goal Hepatitis C screening. Due o n due Goal RLP. Due on due Goal Unhealthy drug use screening . Due on due Goal PRAPARE ASSESSMENT. Due on due Goal Hepatitis C screening. Due o n due Goal Tdap Vaccine. Due on 2023 due Goal RLP. Due on due Goal Unhealthy drug use screening . Due on due Goal Tdap. Due on due Goal Depression screening. Due on due Goal Influenza vaccine. Due on due Goal PRAPARE ASSESSMENT. Due on due Goal Hepatitis C screening. Due o n due Goal RLP. Due on due Goal Tdap Vaccine. Due on 2023 due Goal Unhealthy drug use screening . Due on due Goal PRAPARE ASSESSMENT. Due on J due Goal Influenza vaccine. Due on Ju due Goal Tdap. Due on due Goal Depression screening. Due on due History Of Present Illness Encounter Date Complaint History Of Prese nt Illness fill filling filling NEGRITA REES DN DN Functional Status Date Functional Assessmen t No Information Instructions Date Instruction Additional Infor mation No Information Assessments Type Assessment Date No Information Patient Care Teams Name Effective Dates (start - stop) Status Members No Information
--- OUTSIDE RECORDS SUMMARY | 2024-07-07 06:00 | XMS_ITS ---
Author Organization [facility] vices Address [address] [place], [place] [id number] Care Team Providers Care Brim Ironer Hand Name Role Phone Jazmin Garg Primary Care Provider [phone] Kassi James [phone] REASON FOR VISIT 3 mo Asthma Social History Sex Assigned At : Social History Observation Description Sex Assigned At Female Encounters Encounter Location Date Provider Diagnosis Main [address] [id number] 07/07/2024 Jazmin Garg Plan Of Treatment No Information Progress Notes * Windy ESTRELLA DDOB: 4 (20 yo F)Acc No.[id number]:07/07/2024 Medical Note Patient: Windy Romero :?LEATHA JaraCDOB:2005???Age:19 Y ???Sex:FemaleDate:07/07/2024hone:[phone]:[address], [place]-[address] Subjective: * Chief Complaints: * 3 mo Asthma Billing Information: * Procedure Codes: * Electronic signature of ELENITA Jara on 07/08/2025 at 10:12 PM EST Sign off status: Pending * Provider: ELENITA Coronado Date: 1 09/07/2023 Generated for Printing/Faxing/eTransmitting on:?07/08/2025 10:12 PM EST
--- OUTSIDE RECORDS SUMMARY | 2024-07-20 06:00 | XMS_ITS ---
Author Organization [facility] vices Address [address], [place] [address] Care Team Providers Care Cloth Stock Sorter Name Role Phone Jazmin Garg Primary Care Provider [phone] Kassi James Unavailable [phone] Mae Goncalves Unavailable [phone] REASON FOR VISIT F/U- Asthma Social History Sex Assigned At : Social History Observation Description Sex Assigned At Female Encounters Encounter Location Date Provider Diagnosis Main [address], [place] [address] 07/20/2024 Mae Goncalves Plan Of Treatment No Information Progress Notes * Windy ESTRELLA DDOB: [birth year] (20 yo F)Acc No.[id number]:07/20/2024 Medical Note Patient: Windy Romero :?Mae GoncalvesDOB:2005???Age:19 Y???Sex: FemaleDate:07/20/2024Phone:[phone]:[address] [facility]Pcp:Jazmin Garg Subjective: * Chief Complaints: * F /U- Asthma Billing Information: * Procedure Codes: * Electronic signature of SANAM Irene on 07/08/2025 at 10:12 PM ESTSign off status: Pending * Provider: Naren Goncalves Date: 0 07/20/2024 Generated for Printing/Faxing/eTransmitting on:?07/08/2025 10:12 PM EST
--- OUTSIDE RECORDS SUMMARY | 2025-01-31 10:00 | XMS_ITS ---
Author Organization [facility] vices Address [address] [place], [place] [address] Care Team Providers Care Accounting Administrator Name Role Phone Jazmin Garg Primary Care Provider [phone] Kassi James Unavailable [phone] Micheline Sutton Unavailable [phone] REASON FOR VISIT Annual WCV Social History Sex Assigned At : Social History Observation Description Sex Assigned At Female Encounters Encounter Location Date Provider Diagnosis [place] [address] [place] [address] 01/31/2025 Micheline Sutton Plan Of Treatment No Information Progress Notes * Windy ESTRELLA DDOB: [birth year] (20 yo F)Acc No.[id number]:01/31/2025 Progress Notes Patient: Windy Romero :?Micheline Sutton, MDDOB:2005???Age:19 Y ???Sex:FemaleDate:01/31/2025Phone:[phone]:[address] , [address] [place], [place]Ldv:Jazmin Garg Subjective: * Chief Complaints: * A nnual WCV Billing Information: * Procedure Codes: * Electronic signature of Micheline Sutton MD on 07/08/2025 at 10:12 PM ESTSign off status: Pending * Provider: Saige Sutton MD Date: 0 01/31/2025 Generated for Printing/Faxing/eTransmitting on:?07/08/2025 10:12 PM EST
--- OUTSIDE RECORDS SUMMARY | 2025-04-13 04:15 | XMS_ITS ---
Author Organization [facility] vices Address [address] [place], [place] [address] Care Team Providers Care Balloon Seller Name Role Phone Jazmin Garg Primary Care Provider [phone] Kassi James [phone] REASON FOR VISIT Wellness Social History Sex Assigned At : Social History Observation Description Sex Assigned At Female Encounters Encounter Location Date Provider Diagnosis Main [address] [address] 04/13/2025 Jazmin Garg Plan Of Treatment No Information Progress Notes * Windy ESTRELLA DDOB: [birth year] (20 yo F)Acc No.[id number]:04/13/2025 Progress Notes Patient: Windy Romero :?LEATHA JaraCDOB:2005???Age:19 Y ???Sex:FemaleDate:04/13/2025Phone:[phone]:[address] [facility] [address] [place], [place] Subjective: * Chief Complaints: * W ellness * Electronic signature of ELENITA Jara on 07/08/2025 at 10:11 PM EST Sign off status: Pending * Provider: ELENITA Coronado Date: Generated for Printing/Faxing/eTransmitting on:?07/08/2025 10:11 PM EST
--- OUTSIDE RECORDS SUMMARY | 2025-05-15 10:00 | XMS_ITS ---
Author Organization [facility] vices Address [address] [place], [place] [address] Care Team Providers Care Market Research Intern Name Role Phone Jazmin Garg Primary Care Provider Kassi James [phone] REASON FOR VISIT Wellness Social History Sex Assigned At : Social History Observation Description Sex Assigned At Female Encounters Encounter Location Date Provider Diagnosis Main [address], [place] [id number] 05/15/2025 Jazmin Garg Plan Of Treatment No Information Progress Notes * Windy ESTRELLA DDOB: [birth year] (20 yo F)Acc No.[id number]:05/15/2025 Medical Note Patient: Windy Romero :?LEATHA JaraCDOB:2005???Age:19 Y ???Sex:FemaleDate:05/15/2025Phone:[phone]:[address] [facility] [address] [place], [place] Subjective: * Chief Complaints: * W ellness Billing Information: * Procedure Codes: * Electronic signature of ELENITA Jara on 07/08/2025 at 10:12 PM EST Sign off status: Pending * Provider: ELENITA Coronado Date: 07/15/2024 Generated for Printing/Faxing/eTransmitting on:?07/08/2025 10:12 PM EST
--- OUTSIDE RECORDS SUMMARY | 2025-06-27 14:00 | XMS_ITS | Encounter Summary ---
Author Organization [facility] tem Address [id number] [address] [place] [address] Care Team Providers Care Cardroom Hand Name Role Phone No Pcp, No Pcp Primary Care Provider Unavailabl e Reason for Visit * ReasonCommentsInitial Visit Encounter Details DateTypeDepartmentCare Team (Latest Contact Info)Jearrwysmuq00/16/2025 2:00 PM ESTInitial [facility] [address] [place] [phone] Berta Titus MD [address] [place], [place] [id number] GA: 8w3d Social History Tobacco UseTypesPacks/DayYears UsedDateSmoking Tobacco: NeverSmokeless Tobacco: NeverAlcohol UseStandard Drinks/WeekCommentsNever0 (1 standard drink = 0.6 oz pure alcohol)PHQ-2AnswerDate RecordedTotal Syizw31208/28/2024Overall Financial Resource Strain (CARDIA)AnswerDate RecordedHow hard is it for you to pay for the very basics like food, housing, medical care, and heating?Not hard at all 06/27/2025Housing InstabilityAnswerDate RecordedAre you worried or concerned that in the next two months you may not have stable housing that you own, rent or stay in as a part of a household?No06/27/2025hildcareAnswerDate RecordedDo problems getting child development associate teacher make it difficult for you to work or study?No 06/27/2025EmploymentAnswerDate VwcrdyhuEinuunmvkyBqkqavx26/12/2019Hunger ScreeningAnswerDate RecordedWithin the past 12 months we worried whether our food would run out before we got money to buy more.Never True06/27/2025Within the past 12 months the food we bought just didn't last and we didn't have money to get more.Never True06/27/2025Estimated Date of DeliveryCommentsYes 6Based on UltrasoundSex and Gender InformationValueDate RecordedSex Assigned at BirthNot on fileLegal ZzmPeonbl13/06/2015 12:02 PM EDTGender IdentityNot on fileSexual OrientationNot on filedocumented as of this encounter Functional Status * Within the past 12 months the food we bought just didn't last and we didn't have money to get more.AnswerDate of AssessmentAuthorNever True06/27/2025 2:00 PM Vijaya [facility] 1 * Within the past 12 months we worried whether our food would run out before we got money to buy more.AnswerDate of AssessmentAuthorNever True06/27/2025 2:00 PM Vijaya [facility] 1 * In the past 12 months, has lack of transportation kept you from medical appointments or from getting medications?AnswerDate of AssessmentAuthorNo 06/27/2025 2:00 PM Vijaya, [facility] 1 * Since becoming , how many times have you consumed alcoholic beverages? AnswerDate of CcqvmghikvCaxcry360/16/2025 2:00 PM Vijaya [facility] 1 * In the past 6 months, have you used any illegal substances?AnswerDate of NlgpsrczzfVnxslvAh44/16/2025 2:00 PM Vijaya, [facility] 1 * Which of the following best describes your tobacco use?AnswerDate of AssessmentAuthorI have never used any form of tobacco, or I have used tobacco products fewer than 100 times in my life06/27/2025 2:00 PM Vijaya, [facility] 1 * Are you worried or concerned that in the next two months you may not have stable housing that you own, rent or stay in as a part of a household?Answer Date of FjkvodkaiwZkgxoeAf63/16/2025 2:00 PM Anthonyt, [facility] 1 * Do problems getting child development associate teacher make it difficult for you to work or study? AnswerDate of CjedgxtlzwAhaqhoXp06/16/2025 2:00 PM ESTTablet, [facility] 1 * EdemaQuestionAnswerDate of AssessmentAuthorFacial EutrmMrcn38/16/2025 2:11 PM ESTLeis, EmmaRLE ExbtxTptm28/16/2025 2:11 PM ESTLeis EmmaLLE EdemaNone 06/27/2025 2:11 PM ESTLeis, Madiha * How hard is it for you to pay for the very basics like food, housing, medical care, and heating?AnswerDate of AssessmentAuthorNot hard at all06/27/2025 2:00 PM ESTTablet, [facility] 1 * Within the last year, have you been humiliated or emotionally abused in other ways by your partner or ex-partner?AnswerDate of WbsxdhwywbUhvayxLk82/16/2025 2:00 PM ESTTablet, [facility] 1 * Within the last year, have you been afraid of your partner or ex-partner? AnswerDate of JdleeroizrFoilrxCe98/16/2025 2:00 PM ESTTablet, [facility] 1 * Within the last year, have you been raped or forced to have any kind of sexual activity by your partner or ex-partner?AnswerDate of AssessmentAuthorNo 06/27/2025 2:00 PM VINNIETablet, [facility] 1 * Within the last year, have you been kicked, hit, slapped, or otherwise physically hurt by your partner or ex-partner?AnswerDate of AssessmentAuthorNo 06/27/2025 2:00 PM ESTTablet, [facility] 1 * Little interest or pleasure in doing thingsAnswerDate of AssessmentAuthor0 06/27/2025 2:00 PM ESTTablet, [facility] 1 * Feeling down, depressed, or hopelessAnswerDate of OwztnkucvpQhpvbl253/16/2025 2:00 PM VINNIETablet, [facility] 1 * Total ScoreAnswerDate of UiypyvitizWpxmdm881/16/2025 2:00 PM ESTTablet, [facility] 1 documented as of this encounter Mental Status * EdemaQuestionAnswerEntry DateAuthorFacial GdibiDalt38/16/2025 2:11 PM ESTLeis, EmmaRLE IwiccCbtv74/16/2025 2:11 PM ESTLeis, EmmaLLE JkgdtNpdw59/16/2025 2:11 PM ESTJungs, Madiha documented in this encounter Progress Notes * Berta Titus MD - 06/27/2025 2:00 PM EST HPI: Patient is a 20 y.o. female who presents today for routine check. She is currently 8w3d and . Hx SAB. She requests genetic testing. Has not completed labs. She reports GERD flare up's and frequently spits up. She has been taking Meclozine and Zofran for nausea. Nausea is throughout the day but worse in the morning. She cannot remember her last bowel movement. Zofran is improving her nausea, she is requesting refill. Hx HSV. OB History 2 Para 0 Term 0 0 AB 1 Living 0 SAB 1 IAB 0 Ectopic 0 Multiple 0 Live Births 0 LMP 04/15/2025 ASSESSMENT/PLAN: Discussed how the patient is feeling and any concerns she has at this time. Advised OTC Prilosec oromeprazole is safe to use during . Recommend increasing fluid intake to help with nausea and constipation. Discussed the Zofran can worsen her constipation. Pap smear collected today. Patient has never tried phenergan, compazine, or suppositories. Phenergan suppositories and Zofran sent topharmacy. Advised to report to the ED with any water breaking, bleeding like a period, or contractions 2 minutes apart lasting over an hour after sitting down and drinking water. Madiha Heller 06/27/25 1433 documented in this encounter Plan of Treatment DateTypeDepartmentCare Team (Latest Contact Info)Bodhxvdtdij16/13/2026 2:45 PM ESTRoutine [facility] Obstetric[facility]necology [address] [place] [address] Berta Titus MD [address] [place] [address] documented as of this encounter Procedures Procedure NamePriorityDate/TimeAssociated DiagnosisCommentsCHLAMYDIA/GONORRHOEAE BY PCR, PANQJPkcsvxf20/16/2025 3:32 PM EST Cervical smear, as part of routine gynecological examination THIN PREP PAP OZEHFcegzjh30/16/2025 3:32 PM EST Cervical smear, as part of routine gynecological examination documented in this encounter Results * (ABNORMAL) Chlamydia/Gonorrhoeae by PCR, Fluid (06/27/2025 3:32 PM EST) ComponentValueRef RangeTest MethodAnalysis TimePerformed AtPathologist SignatureCHLAMYDIA PCR, ICYirtzqlkFtahkgyu75/17/2025 11:32 AM [facility]ATORYComment:Chlamydia trachomatis not detected by nucleic acid amplification. This does not exclude the possibility of infection because results are dependent on adequate specimen collection.GONORRHOEAE PCR, FLPositive(A)Mbalrucl94/17/2025 11:32 AM [facility]ATORYComment:Neisseria gonorrhoeae detected by nucleic acid amplification.Specimen (Source)Anatomical Location / LateralityCollection Method / VolumeCollection TimeReceived TimeThin Prep (Cervix/Endocervix) 06/27/2025 3:32 PM EST06/28/2025 5:29 AM EST Narrative Authorizing ProviderResult TypeResult StatusCorie Hang Titus MDMICROBIOLOGY - GENERAL ORDERABLESFinal ResultPerforming OrganizationAddressCity/State/ZIP Code Phone Number [facility] [address] [place] [address], * Thin Prep Pap Test (06/27/2025 3:32 PM EST)ComponentValueRef RangeTest Method Analysis TimePerformed AtPathologist SignatureCase ReportGynecologic Cytology Report ? Case: [id number] ? Authorizing Provider: ??Berta Titus MD ? Collected: ? 06/27/2025 1532 ? Ordering Location: ? [facility] ? Received: ?06/27/2025 1532 ? Obstetrics/Gynecology ? First Screen: ?DHRUV Hoover(ASCP) ? Specimen: ?Thin Prep Pap, Cervix/Endocervix ? 06/28/2025 1:44 PM [facility] LABORATORYSpecimen Adequacy Satisfactory for evaluation, endocervical/transformation zone component present 06/28/2025 1:44 PM [facility]ORYComment:Excessive thickness and partially obscuring bacteria.InterpretationNEGATIVE FOR INTRAEPITHELIAL LESION OR DIPBUJOLCS01/17/2025 1:44 PM [facility] at 1344 ESTOther FindingsShift in rubin suggestive of bacterial vaginosis. 06/28/2025 1:44 PM [facility]ATORYComment: This ThinPrep slide could not be successfully imaged by the [employer] ThinPrep Imaging System so it was manually screened. Additional InformationThe Pap test is a screening test with an inherent, but low, probability of error. The Pap test is primarily effective for the diagnosis and prevention of squamous cell carcinoma. Regular screening iscritical for prevention. ThinPrep liquid-based slides, which meet the Well Service Floor Worker criteria for automated screening, have been screened by the ThinPrep Imaging System (as of 03/29/07) along with an additional manual rescreening by a timber repairer and, if indicated, by a pathologist.06/28/2025 1:44 PM [facility]ORATORYClinical GsppyfchswtNiya54/17/2025 1:44 PM [facility] LABORATORYEmbedded Kycfrp0006/28/2025 1:44 PM [facility] LABORATORYSpecimen (Source)Anatomical Location / LateralityCollection Method / VolumeCollection TimeReceived TimeThin Prep (Cervix/Endocervix)06/27/2025 3:32 PM EST06/27/2025 3:32 PM EST Narrative Authorizing ProviderResult TypeResult StatusCorie Hang Titus MDPATHOLOGY/CYTOLOGY ORDERABLESFinal ResultPerforming OrganizationAddressCity/State/ZIP CodePhone Number [facility] [address] [place] [address], documented in this encounter Visit Diagnoses Diagnosis care, first trimester- Primary Herpes simplex vulvovaginitis Cervical smear, as part of routine gynecological examination Screening for malignant neoplasm of the cervix documented in this encounter Additional Health Concerns AssessmentNoted TimePHQ-9 Depression Total Score: 2:00 PM EST documented as of this encounter Care Teams Team MemberRelationshipSpecialtyStart DateEnd Date No Pcp, [place] [address] PCP - GeneralFamily Ipeihsfv38/26/25documented as of this encounter
--- OUTSIDE RECORDS SUMMARY | 2025-07-03 12:50 | XMS_ITS | Encounter Summary ---
Author Organization [facility] tem Address [id number] [address] [place] [address] Care Team Providers Care Dyehouse Worker Name Role Phone No Pcp, No Pcp Primary Care Provider Unavailabl e Reason for Visit * Auth/CertSpecialtyDiagnoses / ProceduresReferred By ContactReferred To Contact Silvana Barnes APRN-[facility] [address] [place] [address] Phone: tel: fax: Referral IDStatusReasonStart DateExpiration DateVisits RequestedVisits [id number] Encounter Details DateTypeDepartmentCare Team (Latest Contact Info)Mldeukcqsfd50/22/2025 12:50 PM EST - 07/03/2025 1:32 PM ESTHospital Encounter [facility] [address] [place] [phone] Silvana Barnes THREAD SPINNER-[facility] [address] [place] [address] Discharge Disposition: Home Social History Tobacco UseTypesPacks/DayYears UsedDateSmoking Tobacco: NeverSmokeless Tobacco: NeverAlcohol UseStandard Drinks/WeekCommentsNever0 (1 standard drink = 0.6 oz pure alcohol)PHQ-2AnswerDate RecordedTotal Hybot50708/28/2024Overall Financial Resource Strain (CARDIA)AnswerDate RecordedHow hard is it for you to pay for the very basics like food, housing, medical care, and heating?Not hard at all 06/27/2025Housing InstabilityAnswerDate RecordedAre you worried or concerned that in the next two months you may not have stable housing that you own, rent or stay in as a part of a household?No06/27/2025hildcareAnswerDate RecordedDo problems getting children's program coordinator make it difficult for you to work or study?No 06/27/2025EmploymentAnswerDate DrccebaaRivfbcupktAdfkkcq19/12/2019Hunger ScreeningAnswerDate RecordedWithin the past 12 months we worried whether our food would run out before we got money to buy more.Never True06/27/2025Within the past 12 months the food we bought just didn't last and we didn't have money to get more.Never True06/27/2025Estimated Date of DeliveryCommentsYes 02/03/2026ased on UltrasoundSex and Gender InformationValueDate RecordedSex Assigned at BirthNot on fileLegal AunMgiwzn31/06/2015 12:02 PM EDTGender IdentityNot on fileSexual OrientationNot on filedocumented as of this encounter Functional Status * Patient ObservationQuestionAnswerDate of AssessmentAuthorPatient Observations PT AMBULATES OFF UNIT WITH STEADY GAIT. WILL RETURN AT 1600 FOR MED ADMINISTRATION.07/03/2025 1:32 PM Amanda Lyle RN * Adult Sepsis RiskQuestionAnswerDate of AssessmentAuthorRisk of Sepsis v.21.3 07/03/2025 1:40 PM ESTBackground, Clindoc documented as of this encounter Medications at Time of Discharge MedicationSigDispense QuantityRefillsLast FilledStart DateEnd Date ondansetron ODT (ZOFRAN ODT) 4 mg disintegrating tablet Dissolve 1 tablet (4 mg total) on tongue 3 (three) times a day as needed for nausea for up to 3 doses. 3 tablet 06/11/2025 ondansetron ODT (ZOFRAN ODT) 4 mg disintegrating tablet Dissolve 1 tablet (4 mg total) on tongue every 8 (eight) hours as needed for nausea or vomiting. 20 tablet vit no.124/iron/folic ( VITAMIN ORAL) Take 1 tablet by mouth in the morning. promethazine (PHENERGAN) 25 mg suppository Insert 1 suppository (25 mg total) into the rectum every 6 (six) hours as needed for nausea or vomiting. 12 each pyridoxine, vitamin B6, (B-6) 25 mg tablet Take 1 tablet (25 mg total) by mouth in the morning. 14 tablet 06/07/2025 azithromycin (ZITHROMAX) 500 mg tablet Take 2 tablets (1,000 mg total) by mouth in the morning for 1 day. 2 tablet documented as of this encounter Progress Notes * FRANCOIS Julien - 07/03/2025 1:20 PM EST Pt. Here for tx. Of gonorrhea w/allergy to cephalexin. Pt. Reports allergy reaction is a rash/hives CNM spoke w/Nimesh in pharmacy who relates pt.'s allergy is to a 1st generation cephalosporin and ceftriaxone is a 3rd generation cephalosporin and pt. Is therefor less likely to have a reaction to it. CNM spoke w/Dr. Titus and related w/gentamicin the initial consideration for tx. For this pt. Ototoxicity (irreversible) noted and CNM relates conversation w/Nimesh as above. Orders 50 mg benadryl po to premedicate pt. Followed by ceftriaxone 500mg IM and azithromycin 1gm po. Pt. To be observed for an hour after injection Pt. Advised of need for partner tx., waiting 7 days after both have been trx.'d prior to resuming sex w/condoms. Pt. In agreement w/plan of care FRANCOIS Julien 07/03/25 1330 Update: Pt. Subsequently decided to leave and return at 4pm this day for treatment when she will have a ride after 5pm. Dr. Titus updated. FRANCOIS Julien 07/03/25 1342 documented in this encounter Plan of Treatment DateTypeDepartmentCare Team (Latest Contact Info)Yjkawndtxuc93/13/2026 2:45 PM ESTRoutine [facility] Obst[facility]s/[facility]ne[facility] [address] [place] [phone] Berta Titus MD [address] [place], [place] [address] documented as of this encounter Visit Diagnoses Diagnosis Gonorrhea complicating , first trimester documented in this encounter Administered Medications Medication OrderMAR ActionAction DateDoseRateSite cefTRIAXone (ROCEPHIN) 500 mg in lidocaine PF (XYLOCAINE) 10 mg/mL (1 %) IM injection 500 mg, intramuscular, Every 24 hours, First dose on Thu07/03/25 at 1400, Reconstitute 500 mg vialwith 1 mL to yield a 350 mg/mL solution., Indication: Other, Specify: gonorrhea diphenhydrAMINE (BENADRYL) capsule 50 mg 50 mg, oral, Every 6 hours PRN, allergies, Starting on Thu07/03/25 at 1315, For 1 dose, Look-alike/sound-alike medication - verify indication for use. documented in this encounter Active and Recently Administered Medications Times are shown in EST.Medication Order/ azithromycin (ZITHROMAX) tablet 1,000 mg 1,000 mg, oral, Daily, First dose on Thu07/03/25 at 1330, For 1 dose, Indication: STI * 1330 (Due) cefTRIAXone (ROCEPHIN) 500 mg in lidocaine PF (XYLOCAINE) 10 mg/mL (1 %) IM injection 500 mg, intramuscular, Every 24 hours, First dose on Thu07/03/25 at 1400, Reconstitute 500 mg vialwith 1 mL to yield a 350 mg/mL solution., Indication: Other, Specify: gonorrhea Medication Order/ diphenhydrAMINE (BENADRYL) capsule 50 mg 50 mg, oral, Every 6 hours PRN, allergies, Starting on Thu07/03/25 at 1315, For 1 dose, Look-alike/sound-alike medication - verify indication for use. * 1320 (Due) documented in this encounter Additional Health Concerns AssessmentNoted TimePHQ-9 Depression Total Score: 2:00 PM EST documented as of this encounter Care Teams Team MemberRelationshipSpecialtyStart DateEnd Date No Pcp, [place] [address] PCP - GeneralFamily Dhwqcsvu60/26/25documented as of this encounter
--- OUTSIDE RECORDS SUMMARY | 2025-07-03 16:54 | XMS_ITS | Encounter Summary ---
Author Organization [facility] tem Address [id number] [place] [address] Care Team Providers Care Stringed Instrument Tuner Name Role Phone No Pcp, No Pcp Primary Care Provider Unavailabl e Reason for Visit * Auth/CertSpecialtyDiagnoses / ProceduresReferred By ContactReferred To Contact Silvana Barnes APRN-[facility] [address] [place] [address] Phone: tel: fax: Referral IDStatusReasonStart DateExpiration DateVisits RequestedVisits [id number] Encounter Details DateTypeDepartmentCare Team (Latest Contact Info)Rddcsbbszfq04/22/2025 4:54 PM EST - 07/03/2025 7:07 PM ESTHospital Encounter [facility] [address] [place] [phone] Silvana Barnes PRODUCTION CONTROL SPECIALIST-[facility] [address] [place] [address] Discharge Disposition: Home Social History Tobacco UseTypesPacks/DayYears UsedDateSmoking Tobacco: NeverSmokeless Tobacco: NeverAlcohol UseStandard Drinks/WeekCommentsNever0 (1 standard drink = 0.6 oz pure alcohol)PHQ-2AnswerDate RecordedTotal Xogkg27908/28/2024Overall Financial Resource Strain (CARDIA)AnswerDate RecordedHow hard is it for you to pay for the very basics like food, housing, medical care, and heating?Not hard at all 06/27/2025Housing InstabilityAnswerDate RecordedAre you worried or concerned that in the next two months you may not have stable housing that you own, rent or stay in as a part of a household?No06/27/2025hildcareAnswerDate RecordedDo problems getting child care aide make it difficult for you to work or study?No 06/27/2025EmploymentAnswerDate JvfrpxabPckwumarimVuoqnnz41/12/2019Hunger ScreeningAnswerDate RecordedWithin the past 12 months we worried whether our food would run out before we got money to buy more.Never True06/27/2025Within the past 12 months the food we bought just didn't last and we didn't have money to get more.Never True06/27/2025Estimated Date of DeliveryCommentsYes 02/03/2026ased on UltrasoundSex and Gender InformationValueDate RecordedSex Assigned at BirthNot on fileLegal NshBhmrbx32/06/2015 12:02 PM EDTGender IdentityNot on fileSexual OrientationNot on filedocumented as of this encounter Functional Status * Patient ObservationQuestionAnswerDate of AssessmentAuthorPatient Observations PT WHEELED OFF UNIT BY RN TO RIDE WAITING OUTSIDE.07/03/2025 7:07 PM Cynthia Chen RN * Adult Sepsis RiskQuestionAnswerDate of AssessmentAuthorRisk of Sepsis v.21.3 07/03/2025 7:41 PM Meche, Clindoc documented as of this encounter Medications [...] the morning for 1 day. 2 tablet 5109/04/2024documented as of this encounter Progress Notes * FRANCOIS Julien - 07/03/2025 5:18 PM EST Pt. Returns for tx of gonorrhea. Regimen of pre medication w/50mg po benadryl, wait 1/2hr. Then administer 500mg IM ceftriaxone w/lidocaine 1gm po azithromycin Pt. To be observed one hour after receipt of ceftriaxone for any allergic response. FRANCOIS Julien 07/03/25 1719 documented in this encounter Plan of Treatment DateTypeDepartmentCare Team (Latest Contact Info)Aplbilebwil34/13/2026 2:45 PM ESTRoutine [facility] Obstetrics/Gynecology [address] [place] [address] Berta Titus MD [address] [place], [place] [phone] documented as of this encounter Visit Diagnoses Not on filedocumented in this encounter Administered Medications Medication OrderMAR ActionAction DateDoseRateSite azithromycin (ZITHROMAX) tablet 1,000 mg 1,000 mg, oral, Once, On 07/03/25 at 1730, For 1 dose, Indication: STI Given07/03/2025 5:54 PM EST1,000 mg cefTRIAXone (ROCEPHIN) 500 mg in lidocaine PF (XYLOCAINE) 10 mg/mL (1 %) IM injection 500 mg, intramuscular, Every 24 hours, First dose on Thu07/03/25 at 1730, Administer 30min. After oral benadryl Reconstitute 500 mg vial with 1 mL to yield a 350 mg/mL solution., Indication: Gonorrhea Given07/03/2025 5:51 PM IUA576 mgLeft Deltoid diphenhydrAMINE (BENADRYL) capsule 50 mg 50 mg, oral, Once, On Thu07/03/25 at 1730, For 1 dose, Look-alike/sound-alike medication - verify indication for use. Given07/03/2025 5:23 PM EST50 mgdocumented in this encounter Active and Recently Administered Medications Times are shown in EST.Medication Order azithromycin (ZITHROMAX) tablet 1,000 mg (COMPLETED) 1,000 mg, oral, Once, On Thu07/03/25 at 1730, For 1 dose, Indication: STI * 1754 (Given - Provider: Amanda Anton RN) cefTRIAXone (ROCEPHIN) 500 mg in lidocaine PF (XYLOCAINE) 10 mg/mL (1 %) IM injection 500 mg, intramuscular, Every 24 hours, First dose on Thu07/03/25 at 1730, Administer 30min. After oral benadryl Reconstitute 500 mg vial with 1 mL to yield a 350 mg/mL solution., Indication: Gonorrhea * 1751 (Given - Provider: Amanda Anton RN) diphenhydrAMINE (BENADRYL) capsule 50 mg (COMPLETED) 50 mg, oral, Once, On Thu07/03/25 at 1730, For 1 dose, Look-alike/sound-alike medication - verify indication for use. * 1723 (Given - Provider: Amanda Anton RN) documented in this encounter Additional Health Concerns AssessmentNoted TimePHQ-9 Depression Total Score: 2:00 PM EST documented as of this encounter Care Teams Team MemberRelationshipSpecialtyStart DateEnd Date No Pcp, [place] [address] PCP - [facility]Fab[facility] Jcspglzu41/26/25documented as of this encounter
--- OUTSIDE RECORDS SUMMARY | 2025-07-08 21:25 | XMS_ITS | Encounter Summary ---
Author Organization [facility] [employer] [facility] tem Address [id number] [address] [place] [address] Care Team Providers Care Precision Agronomist Name Role Phone No Pcp, No Pcp Primary Care Provider Unavailabl e Reason for Visit * ReasonCommentsVomiting During PregnancyPt reports that she is 10 weeks and has been vomiting with abdominal pain for last 4 days. Encounter Details DateTypeDepartmentCare Team (Latest Contact Info)Jjiesaeejxt27/27/2025 9:25 PM EST - 07/08/2025 9:31 PM [facility] - Emergency [address] [place] [address] Discharge Disposition: Left Without Treatment Social History Tobacco UseTypesPacks/DayYears UsedDateSmoking Tobacco: NeverSmokeless Tobacco: NeverAlcohol UseStandard Drinks/WeekCommentsNever0 (1 standard drink = 0.6 oz pure alcohol)PHQ-2AnswerDate RecordedTotal Ngntm85408/28/2024Overall Financial Resource Strain (CARDIA)AnswerDate RecordedHow hard is it for you to pay for the very basics like food, housing, medical care, and heating?Not hard at all 06/27/2025Housing InstabilityAnswerDate RecordedAre you worried or concerned that in the next two months you may not have stable housing that you own, rent or stay in as a part of a household?No06/27/2025hildcareAnswerDate RecordedDo problems getting children's zoo caretaker make it difficult for you to work or study?No 06/27/2025EmploymentAnswerDate SdkeckswBrmnomhujdEamfmrv73/12/2019Hunger ScreeningAnswerDate RecordedWithin the past 12 months we worried whether our food would run out before we got money to buy more.Never True07/08/2025Within the past 12 months the food we bought just didn't last and we didn't have money to get more.Never True07/08/2025Estimated Date of DeliveryCommentsYes 6Based on UltrasoundSex and Gender InformationValueDate RecordedSex Assigned at BirthNot on fileLegal IrhZwaajd48/06/2015 12:02 PM EDTGender IdentityNot on fileSexual OrientationNot on filedocumented as of this encounter Last Filed Vital Signs Vital SignReadingTime TakenCommentsBlood Eshyhoue318/6407/08/2025 7:38 PM EST Tqjrf07466/27/2025 7:38 PM HCKQoulllwwpqc08.1 ??C (98.8 ??F)07/08/2025 7:38 PM ESTRespiratory Ejmi937909/08/2024 7:38 PM ESTOxygen Lorxniunlr73%07/08/2025 7:38 PM ESTInhaled Oxygen Concentration--Leygzn06 kg (150 lb)07/08/2025 7:38 PM EST Ybcfca362.1 cm (5' 5 )07/08/2025 7:38 PM ESTBody Mass Index24.9607/08/2025 7:38 PM ESTdocumented in this encounter Functional Status * ED Hunger ScreeningQuestionAnswerDate of AssessmentAuthorWithin the past 12 months the food we bought just didn't last and we didn't have money to get more.Never True07/08/2025 7:38 PM Chris Cary RNWithin the past 12 months we worried whether our food would run out before we got money to buy more. Never True07/08/2025 7:38 PM Chris Cary RN * BEE (kcal)AnswerDate of XlmlzxphdiGdoshw099231/27/2025 7:38 PM Chris Cary RN * Pain AssessmentQuestionAnswerDate of AssessmentAuthorPain LocationAbdomen 07/08/2025 7:38 PM Chris Cary RNPain YdqmalvvdqyIufhzu86/27/2025 7:38 PM Chris Cary RNPain JnukhTbnavqp63/27/2025 7:38 PM Chris Cary RNPain DurationConstant/rxwvtokcvl79/27/2025 7:38 PM Chris Cary RNPain Type Acute pain07/08/2025 7:38 PM Chris Cary RNPain Assessment0-10109/08/2024 7:38 PM Chris Cary RNPain Jwllz7562/27/2025 7:38 PM Chris Cary RN * [place] Coma ScaleQuestionAnswerDate of AssessmentAuthorEye Vvsgwrf944/27/2025 7:38 PM Chris Cary RNBest Motor Fkaozrno169/27/2025 7:38 PM Chris Cary RNBest Verbal Qffmnpzk559/27/2025 7:38 PM Chris Cary RNGlasgow Coma Scale Uisrq0269/27/2025 7:38 PM Chris Cary RN * Patient ObservationQuestionAnswerDate of AzwmpcuozhMoplfvSxoncr8479/27/2025 7:38 PM Chris Cary RNWeight2400109/08/2024 7:38 PM Chris Cary RN * BSA (Calculated - sq m)AnswerDate of AssessmentAuthor1.7707/08/2025 7:38 PM Chris Cary RN * BMI (Calculated)AnswerDate of ZmjcerpwmvAthaya6734/27/2025 7:38 PM Chris Cary RN * Height and WeightQuestionAnswerDate of AssessmentAuthoeit MethodStated 07/08/2025 7:38 PM Chris Cary RN * Abuse Indicator ScreeningQuestionAnswerDate of AssessmentAuthorSafe in HomeYes 07/08/2025 7:38 PM Chris Cary RNDo you feel safe in your relationship(s)?Yes07/08/2025 7:38 PM Chris Cary RNAre you in immediate danger?No07/08/2025 7:38 PM Chris Cary RN * Harm Risk AssessmentQuestionAnswerDate of AssessmentAuthorAre you having thoughts of homicide or causing harm to others?No07/08/2025 7:38 PM Chris Cary RN * Blood HistoryQuestionAnswerDate of AssessmentAuthorHave you had a blood transfusion?No07/08/2025 7:38 PM Chris Cary RNWould you accept a blood transfusion in a life-threatening situation?Yes07/08/2025 7:38 PM Chris Cary RN * Fall Prevention Screening 18-64 yearsQuestionAnswerDate of AssessmentAuthorIs Patient Alert, Oriented and Able to Follow GmujhgdfDrl83/27/2025 7:38 PM Chris Saldaña RNFall Prevention ScreenDoes Not Apply to Patient - Screening Iwzvbwdx87/27/2025 7:38 PM Chris Cary RN * Vital SignsQuestionAnswerDate of DtdqhyudfzKcxmdpTW013/6407/08/2025 7:38 PM Chris Cary RNTemp98.8109/08/2024 7:38 PM Chris Cary RNTemp srcOral 07/08/2025 7:38 PM Chris Cary, YKGsfgj81712/27/2025 7:38 PM Chris Cayr XEAfed6047/27/2025 7:38 PM Chris Cary WSGkJ04415/27/2025 7:38 PM Chris Cary RNHeart Rate SourcePulse Ox07/08/2025 7:38 PM Chris Cary RNBP LocationRight arm07/08/2025 7:38 PM Chris Cary RNBP Method Uvpcmkbyb94/27/2025 7:38 PM Chris Cary RNPatient PositionSitting 07/08/2025 7:38 PM Chris Cary RN * Oxygen TherapyQuestionAnswerDate of AssessmentAuthorO2 DeviceNone (Room air) 07/08/2025 7:38 PM Chris Cary RN * AirwayQuestionAnswerDate of AssessmentAuthorAirway (WDL)WD09/08/2024 7:38 PM Chris Cary RN * BreathingQuestionAnswerDate of AssessmentAuthorBreathing ([facility])WD09/08/2024 7:38 PM Chris Cary RN * CirculationQuestionAnswerDate of AssessmentAuthorCirculation ([facility])WDL 07/08/2025 7:38 PM Chris Cary RN * DisabilityQuestionAnswerDate of AssessmentAuthorDisability ([facility])WD09/08/2024 7:38 PM Chris Cary RN * Weight in (lb) to have BMI = 25AnswerDate of SducvxpezcRqjnfs066.9109/08/2024 7:38 PM Chris Cary RN * Champion Suicide BehaviorQuestionAnswerDate of AssessmentAuthor6. Have you ever done anything, started to do anything, or prepared to do anything to end your life?No07/08/2025 7:38 PM Chris Cary RN * Suicidal Ideation (Last Month)QuestionAnswerDate of AssessmentAuthor1. In the last month have you wished you were or wished you could go to sleep and not wake up?No07/08/2025 7:38 PM Chris Cary RN2. In the last month have you actually had any thoughts of killing yourself?No07/08/2025 7:38 PM Chris Saldaña RNAble to assess?Yes07/08/2025 7:38 PM Chris Cary RN * Vitals TimerQuestionAnswerDate of AssessmentAuthorRestart Vitals TimerYes 07/08/2025 7:38 PM Chris Cary RN * TB ScreeningQuestionAnswerDate of AssessmentAuthorPatient has prolonged cough? No07/08/2025 7:38 PM Chris Cary RNPatient has bloody cough?No07/08/2025 7:38 PM Chris Cary RNPatient has fever?No07/08/2025 7:38 PM Chris Cary RNPatient has night sweats?No07/08/2025 7:38 PM Chris Cary RN Patient has weight loss?No07/08/2025 7:38 PM Chris Cary RNPatient has positive PPD?No07/08/2025 7:38 PM Chris Cary RN * Champion Suicide Risk LevelAnswerDate of AssessmentAuthorNot at Suicide Risk 07/08/2025 7:38 PM Chris Cary RN * BEE (kcal)AnswerDate of VfjqgykcmsAwlypa954650/27/2025 7:38 PM Chris Cary RN * Patient ObservationQuestionAnswerDate of IcbmygmybvFluqlhEcxhwi5393/27/2025 7:38 PM Chris Cary RNWeight2400109/08/2024 7:38 PM Chris Cary RN * BSA (Calculated - sq m)AnswerDate of AssessmentAuthor1.7707/08/2025 7:38 PM Chris Cary RN * BMI (Calculated)AnswerDate of YxiagqgznlUcqxrf5502/27/2025 7:38 PM Chris Cary RN * Height and WeightQuestionAnswerDate of AssessmentWorcester Recovery [facility] and [facility] MethodStated 07/08/2025 7:38 PM Chris Cary RN * Vital SignsQuestionAnswerDate of YtebknzzctTzubxwWH692/6407/08/2025 7:38 PM Chris Cary RNTemp98.8109/08/2024 7:38 PM Chris Cary RNTemp srcOral 07/08/2025 7:38 PM Chris Cary OXIreat94567/27/2025 7:38 PM Chris Cary RNResp18109/08/2024 7:38 PM Chris Cary RNSpO29907/08/2025 7:38 PM Chris Cary RNHeart Rate SourcePulse Ox07/08/2025 7:38 PM Chris Cary RNBP LocationRight arm07/08/2025 7:38 PM Chris Cary RNBP Method Wztwuxdng95/27/2025 7:38 PM Chris Cary RNPatient PositionSitting 07/08/2025 7:38 PM Chris Cary RN * Weight in (lb) to have BMI = 25AnswerDate of MuzuspvdckHatljj339.9109/08/2024 7:38 PM Chris Cary RN documented as of this encounter Mental Status * Pain AssessmentQuestionAnswerEntry DateAuthorPain RilrigqtVxouksb48/27/2025 7:38 PM Chris Cary RNPain YoncuvpkrikDwlmqi80/27/2025 7:38 PM Chris Cary RNPain DurationConstant/imodcactna79/27/2025 7:38 PM Chris Cary RNPain Assessment0-10109/08/2024 7:38 PM Chris Cary RNPain Score10 07/08/2025 7:38 PM Chris Cary RN * [place] Coma ScaleQuestionAnswerEntry DateAuthorEye Gbdbqqj060/27/2025 7:38 PM Chris Cary RNBest Motor Sgnwohqe912/27/2025 7:38 PM Chris Cary RN Best Verbal Orbxydil979/27/2025 7:38 PM Chris Cary RNGlasgow Coma Scale Jetmn1242/27/2025 7:38 PM Chris Cary RN * Vital SignsQuestionAnswerEntry MfsaCcqcrzFZ034/6407/08/2025 7:38 PM Chris Cary RNTemp98.8109/08/2024 7:38 PM Chris Cary RNTemp zyqVrxw9207/08/2025 7:38 PM Chris Cary MFDkxwv59097/27/2025 7:38 PM Chris Cary RNResp 18109/08/2024 7:38 PM Chris Cary RNSpO29907/08/2025 7:38 PM Chris Cary RNHeart Rate SourcePulse Ox07/08/2025 7:38 PM Chris Cary RNBP LocationRight arm07/08/2025 7:38 PM Chris Cary RNBP MethodAutomatic 07/08/2025 7:38 PM Chirs Cary RNPatient YtlvyaewDulmmzx23/27/2025 7:38 PM Chris Cary RN * Oxygen TherapyQuestionAnswerEntry DateAuthorO2 DeviceNone (Room air)07/08/2025 7:38 PM Chris Cary RN documented in this encounter Medications at Time of Discharge [...] by mouth in the morning. 14 tablet 06/07/2025documented as of this encounter Plan of Treatment DateTypeDepartmentCare Team (Latest Contact Info)Mbipiiesffc53/13/2026 2:45 PM ESTRoutine [facility] [address] [place] [address] Berta Titus MD [address] [place] [address] documented as of this encounter Visit Diagnoses Not on filedocumented in this encounter Additional Health Concerns AssessmentNoted TimePHQ-9 Depression Total Score: 2:00 PM EST documented as of this encounter Care Teams Team MemberRelationshipSpecialtyStart DateEnd Date No Pcp, [place] [id number] PCP - GeneralFamily Cjrhukob14/26/25documented as of this encounter
[2025-07-08 21:59] VITALS: BP 141/73; PULSE 77; TEMP 36.9; O2SAT 99; BMI 21.5
[2025-07-08] MEDS: 0.9 % SODIUM CHLORIDE 1,000 ML 1000 ML IV ×2 (22:12→22:57)
--- OUTSIDE RECORDS SUMMARY | 2025-07-08 22:12 | XMS_ITS | Patient Health Record ---
Author Organization [email or web address] Address [address] [place] [address] Care Team Providers Care Supervisor Research Kennel Name Role Phone Jacob Og Primary Care Provider [phone] Reason For Referral No Information Plan Of Treatment No Information Insurance Providers Payer Name Payer Address Payer Phone Subscriber Number Group Number Insured Name Patient Relationship to Insured Coverage Start Date Coverage End Date [employer] [place] [employer] [address] [place] [address] [id number] DELORES Gloria - patient is the [id number] [facility] HospitaleyePO [address] [place] [id number], VIOLASelf - patient is the xjhoraj63ental [place] EnvolvePO [address] [address] [place] [phone], VIOLASelf - patient is the bygvnaz20ental Wrap [facility] BuckeyePO [address] [place] [id number], VIOLASelf - patient is the [id number]
--- OUTSIDE RECORDS SUMMARY | 2025-07-08 22:12 | XMS_ITS | Patient Health Record ---
Author Organization [facility] vices Address [address] [place], [place] [address] Care Team Providers Care Thermite Bomb Loader Name Role Phone Forest Jazmin Primary Care Provider aKssi James Unavailable [phone] Mae Goncalves Unavailable [phone] Herman, Micheline Unavailable [phone] Allergies No Known Allergies Reason For Referral No Information Immunizations Vaccine Route Administration Date Status Comme [...] 09/23/2005 Administered Status:Complete ,Reason:Given or N/A , brittneyong (09/23/2005) vis and after shots info given, 20 min. wait c no reaction noted Co Pilot: [employer] Parent/Guardian : mom *Hep B, adolescent or pediatric (11-19), 3 dose schedule-VFC Unknown 2004 Administered *Hep B, adult dosage-PrivateOTH Other/Vavhfjpurttiu26/28/2005Administered Status:Complete ,Reason:Given or N/A , karenl (11/25/2005) pediarix given. Hep B given at [facility] on 2004 *Hep B, adult dosage-PrivateOTH Other/Wyvpctoswebir44/12/2005Administered Status:Complete ,Reason:Given or N/A , karenl (11/25/2005) pediarix given Sequence #2*Hep B, adult dosage-PrivateOTH Other/Eqpfmeauiulka96/14/2005 AdministeredStatus:Complete ,Reason:Given or N/A , karenl (11/25/2005) pediarix given Sequence #3*Hib (PRP-T), 4 dose schedule-KJGSmsxhor65/28/2005Administered *HPV9 (human papillomavirus), nonavalent-WcxudhrVhtwtzq05/13/2017Administered *HPV9 (human papillomavirus), nonavalent-XjfjrclEmarlss35/20/2018Administered *Meningococcal Mcv4p (Menactra)-WXKDfpgcjy67/13/2017Administered*MMR-VFCOTH Other/Zpumbqycidebl90/23/2005AdministeredStatus:Complete ,Reason:Given or N/A *Tdap (Adacel)-VEEKdclhsf98/13/2017Administered*Varicella (Varivax)-VFCOTH Other/Zeycguilolfqo57/23/2005AdministeredStatus:Complete ,Reason:Given or N/A DTaP-Hep B-IPVOTH Other/Bmadxnfdjprxv67/28/2005AdministeredStatus:Complete ,Reason:Given or N/A , karenl (11/25/2005) pediarix givenDTaP-Hep B-IPVOTH Other/Fkjkxgtkgkdto34/12/2005AdministeredStatus:Complete ,Reason:Given or N/A , karenl (11/25/2005) pediarix given Sequence #2DTaP-Hep B-IPVOTH Other/Qaiyetdqbzyft77/14/2005AdministeredStatus:Complete ,Reason:Given or N/A , virgil (11/25/2005) pediarix given Sequence #3Hib (HbOC), 4 dose scheduleOTH Other/Gzawvkqzmvcei14/28/2005AdministeredStatus:Complete ,Reason:Given or N/A , Sequence #2Hib (HbOC), 4 dose scheduleOTH Other/Ugtkexwinnacn66/12/2005 AdministeredStatus:Complete ,Reason:Given or N/A , Sequence #3Hib (HbOC), 4 dose scheduleOTH Other/Tvkruqegzaqva52/14/2005AdministeredStatus:Complete ,Reason:Given or N/A , Sequence #4Hib (HbOC), 4 dose scheduleIM Intramuscular 09/23/2005dministeredStatus:Complete ,Reason:Given or N/A , Co Pilot: [employer] Parent/Guardian: momInfluenza (whole)Hqviinj1406/04/2005 AdministeredInfluenza (whole)Glhrnzr9106/13/2005AdministeredPneumococcal 7-valent Conjugate-HUXKagrrft37/12/2005AdministeredPneumococcal conjugate PCV 7OTH Other/Kzomtghavwzzd04/28/2005AdministeredStatus:Complete ,Reason:Given or N/A Pneumococcal conjugate PCV 7OTH Other/Oauklmzaseiwr90/12/2005Administered Status:Complete ,Reason:Given or N/A , Sequence #2Pneumococcal conjugate PCV 7 OTH Other/Vwnbxpldjwtmi02/14/2005AdministeredStatus:Complete ,Reason:Given or N/A , Sequence #3Pneumococcal conjugate PCV 7IM Liedjzkmoevha92/14/2006 AdministeredStatus:Complete ,Reason:Given or N/A , Co Pilot: [employer] Parent/Guardian: mom Sequence #4 Social History [...] GEDpatient entered dataWhat is your 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 Stress is when someone feels tense, nervous, anxious, or can't sleep at night because their mind is troubledA little bitpatient entered dataIn the past year have you spent more than 2 nights in a row in a skilled nursing, half-way, halfway center, orjuvenile correctional facility?Nopatient entered dataAre you [...] are you using?NonePCMH and UDS DemographicsSocial Info QuestionAnswerNotesPriLiberty Hospital Medical [facility] QuestionsDo you have any barriers [...] Status Risk Notes Problem Mild intermittent asthma (462274 007) Mild intermittent asthma without complication (J45.20) ActiveconfirmedProblemPrimary dysmenorrhea (27222096)Primary dysmenorrhea (N94.4)ActiveconfirmedProblemAllergic rhinitis (22606200)Allergic rhinitis (J30.9)03/23/2007ctiveconfirmedProblemAsthma without status asthmaticus (43566722)Asthma, exogenous (J45.909)InactiveconfirmedDescription:Extrinsic asthmaProblemLate period (49586839)Late period (N92.6)InactiveconfirmedProblem Dermatophytosis (96930847)Dermatophytoses (B35.9)10/25/2007Problem resolved confirmedDescription:DermatophytosisProblemUmbilical hernia (160903701)Hernia, umbilical (K42.9)12/23/2006Problem resolvedconfirmedDescription:Umbilical hernia ProblemEmesis (355499902)Emesis (R11.10)Problem resolvedconfirmedComment:check UGI study and USG abd,Description:VomitingProblemAcute upper respiratory infection (37122072)Acute upper respiratory infection (J06.9)12/15/2007Problem resolvedconfirmed Comment:resolved. Child has a Hx of Asthma : f/u in 3-4 weeks to recheck Asthma, ProblemChronic infection of sinus (99158857)Chronic infection of sinus (J32.9) 11/20/2005Problem resolvedconfirmedDescription:Chronic sinusitisProblemAbdominal pain (32834469)Abdominal pain (R10.9)Problem resolvedconfirmedComment:DDx: GERD vs other pathology like subacute appendicitis,ProblemAirway hyperreactivity (002359194)Airway hyperreactivity (J45.909)11/20/2005Problem resolvedconfirmed Comment:mild, per Hx. Was [...] in 3-4 months,Description:Asthma ProblemDisease caused by virus (75789042)Disease caused by virus (B34.9) 11/19/2006Problem resolvedconfirmedComment:increase fluids, continue tylenol prn; treat symptoms with medications; if pt persists to have reduced activity/lethargy - go to ER as she may require IV fluids, MVU of plan,Description:ViralinfectionProblemAcute purulent otitis media (560514110) Acute purulent otitis media (H66.009)09/02/2005Problem resolvedconfirmed Description:Acute suppurative otitis mediaProblemAcute pharyngitis (543395474) Acute pharyngitis (J02.9)09/22/2007Problem resolvedconfirmedProblemConstipation (73633269)CN (constipation) (K59.00)09/23/2005Problem resolvedconfirmed Description:ConstipationProblemPrescription renewal (878168921)Medication refill (Z76.0)Problem resolvedconfirmed Comment:Will restart Singulair and Albuterol HFA as needed Told Dad, I need to look through the chart and see which medication she has been taking consistently. Once she has recovered from this viral illness, will RTC for an ASthma appointment., ProblemAcute tonsillitis (24084318)Acute infective tonsillitis (J03.90) 04/05/2008Problem resolvedconfirmedDescription:Acute tonsillitisProblemE. coli enteritis (A04.4)05/07/2006Problem resolvedconfirmedDescription:Intestinal infection due to E. coliProblemUrinary tract infectious disease (82656628) Infection of urinary tract (N39.0)01/30/2009Problem resolvedconfirmed Comment:Instructed mother to give all medication as prescribed, increase oral fluids, return if symptoms worsen or do not get better. Mother verbalizes and agrees with plan of care. DIscussed hygiene, using wet wipes to clean area better, improving constipation with change in diet. no need for further investigation, unless recurrence noted,Description:Urinary tract infection ProblemPneumonia (919348096)PNA (pneumonia) (J18.9)09/03/2006Problem resolved confirmedDescription:Pneumonia Vital Signs Heart Rate 66 /min 05/29/2025 Jose Sharpe 05/29/2025 09:34:15 AM EST > Temperature 97.6 degrees Fahrenheit 05/29/2025 Mckayla Mao 05/29/2025 09:34:15 AM EST > Respiratory Rate 18 /min 05/29/2025 Dell Filiberto bo 05/29/2025 09:34:15 AM EST > Height-cm 135.89 cm 05/29/2025 Jose Sharpe 05/29/2025 09:34:15 AM EST > Oximetry 98 % 05/29/2025 Jose Sharpe 05/29/2025 09:34:15 AM EST > Blood pressure diastolic 72 mm Hg 05/29/2025 Mckayla Coombs 05/29/2025 09:34:15 AM EST > Weight-kg 68.22 kg 05/29/2025 Jose Sharpe 05/29/2025 09:34:15 AM EST > Height 64.75 in 05/29/2025 Jose Sharpe 05/29/2025 09:34:15 AM EST > Blood pressure systolic 113 mm Hg 05/29/2025 Mckayla Mao 05/29/2025 09:34:15 AM EST > Weight 150.4 lbs 05/29/2025 Jose Sharpe 05/29/2025 09:34:15 AM EST > BMI 25.22 kg/m2 05/29/2025 Jose Sharpe 05/29/2025 09:34:15 AM EST > Encounters Encounter Location Date Provider Diagnosis [address] [id number] 05/29/2025 [facility] on Z00.00 ; BMI 25.0-25.9,adult Z68.25 ; Dietary counseling Z71.3 and Exercise counseling Z71.82 Assessments Encounter Date Diagnosis (ICD Code) Assessment Notes Treatment Notes Treatment Clinical Notes Section Notes 05/29/2025 Wellness examination (ICD-10 - Z 00.00) Completed pt's Yearly Preventative Wellness Exam. Pt advised on healthy diet and exercise. Encouraged to limit fried, fatty, and processed foods and eat healthier options such as fruits, vegetables, and lean meats. Patient had a positive test. Encouraged to call OBGYN and start vitamins 05/29/2025MI 25.0-25.9,adult (ICD-10 - Z68.25)05/29/2025Dietary counseling (ICD-10 - Z71.3)Encoruaged eating a healthy, balanced diet and increasing activity level by engaging in exercise atleast 30 min x atleast 5 days a week. 05/29/2025Exercise counseling (ICD-10 - Z71.82)The patient was encouraged [...] Insured Coverage Start Date Coverage End Date [facility] [address] [place] [address] [id number] Hester, ViolaSelf - patient is the [id number] 2023Medicaid CFC after Jayne [address] [place], [place] [id number], ViolaSelf - patient is the insured 2023 Medical (General) History Medical History History ICD Code Hernia, umbilical Airway hyperreactivityPNA (pneumonia)Surgical History Surgery Date(Month/Year)
--- OUTSIDE RECORDS SUMMARY | 2025-07-08 22:13 | XMS_ITS | Encounter Summary ---
Author Organization [facility] Address [facility] [id number] [address] [place] [address] Care Team Providers Care Perinatal Technician Name Role Phone No Pcp, No Pcp Primary Care Provider Unavailabl e Encounter Details DateTypeDepartmentCare Team (Latest Contact Info)Bfmsudyrrcm98/22/2025Orders Only [facility] [address] [place] [address] Berta Titus MD [address] [facility] CENTERBeckieWH[place], [place] [id number] Social History Tobacco UseTypesPacks/DayYears UsedDateSmoking Tobacco: NeverSmokeless Tobacco: NeverAlcohol UseStandard Drinks/WeekCommentsNever0 (1 standard drink = 0.6 oz pure alcohol)PHQ-2AnswerDate RecordedTotal Hfsva14608/28/2024Overall Financial Resource Strain (CARDIA)AnswerDate RecordedHow hard is it for you to pay for the very basics like food, housing, medical care, and heating?Not hard at all 06/27/2025Housing InstabilityAnswerDate RecordedAre you worried or concerned that in the next two months you may not have stable housing that you own, rent or stay in as a part of a household?No06/27/2025hildcareAnswerDate RecordedDo problems getting child & adolescent psychiatrist make it difficult for you to work or study?No 06/27/2025EmploymentAnswerDate OoojidalLmvpsdcfazAafaprx21/12/2019Hunger ScreeningAnswerDate RecordedWithin the past 12 months we worried whether our food would run out before we got money to buy more.Never True06/27/2025Within the past 12 months the food we bought just didn't last and we didn't have money to get more.Never True06/27/2025Estimated Date of DeliveryCommentsYes 6Based on UltrasoundSex and Gender InformationValueDate RecordedSex Assigned at BirthNot on fileLegal ByqKpqunv52/06/2015 12:02 PM EDTGender IdentityNot on fileSexual OrientationNot on filedocumented as of this encounter Plan of Treatment DateTypeDepartmentCare Team (Latest Contact Info)Quhjnakcmwu40/13/2026 2:45 PM ESTRoutine [facility] [address] [place] [id number] Berta Titus MD [address] [place], [place] [id number] documented as of this encounter Visit Diagnoses Not on filedocumented in this encounter Additional Health Concerns AssessmentNoted TimePHQ-9 Depression Total Score: 2:00 PM EST documented as of this encounter Care Teams Team MemberRelationshipSpecialtyStart DateEnd Date No Pcp, [place] [id number] PCP - GeneralFamily Lunpiqhb99/26/25documented as of this encounter
--- OUTSIDE RECORDS SUMMARY | 2025-07-08 22:13 | XMS_ITS | Encounter Summary ---
Author Organization [facility] [employer] [employer] [facility] Address [facility] [id number] [address] [place] [address] Care Team Providers Care Bin Worker Name Role Phone No Pcp, No Pcp Primary Care Provider Unavailabl e Encounter Details DateTypeDepartmentCare Team (Latest Contact Info)Fqbrejqaoiz72/22/2025Results Follow-Up [facility] [address] [place] [address] Berta Titus MD [address] [place], [place] [id number] Thin Prep Pap Test, Chlamydia/Gonorrhoeae by PCR, Fluid Social History Tobacco UseTypesPacks/DayYears UsedDateSmoking Tobacco: NeverSmokeless Tobacco: NeverAlcohol UseStandard Drinks/WeekCommentsNever0 (1 standard drink = 0.6 oz pure alcohol)PHQ-2AnswerDate RecordedTotal Ughfg48908/28/2024Overall Financial Resource Strain (CARDIA)AnswerDate RecordedHow hard is it for you to pay for the very basics like food, housing, medical care, and heating?Not hard at all 06/27/2025Housing InstabilityAnswerDate RecordedAre you worried or concerned that in the next two months you may not have stable housing that you own, rent or stay in as a part of a household?No06/27/2025hildcareAnswerDate RecordedDo problems getting child care attendant make it difficult for you to work or study?No 06/27/2025EmploymentAnswerDate CwfzgdukAkxridxfyvSgkmovk78/12/2019Hunger ScreeningAnswerDate RecordedWithin the past 12 months we worried whether our food would run out before we got money to buy more.Never True06/27/2025Within the past 12 months the food we bought just didn't last and we didn't have money to get more.Never True06/27/2025Estimated Date of DeliveryCommentsYes 6Based on UltrasoundSex and Gender InformationValueDate RecordedSex Assigned at BirthNot on fileLegal PhjMydhcc57/06/2015 12:02 PM EDTGender IdentityNot on fileSexual OrientationNot on filedocumented as of this encounter Plan of Treatment DateTypeDepartmentCare Team (Latest Contact Info)Ieihspsohwq95/13/2026 2:45 PM ESTRoutine [facility] [address] [place] [address] Berta Titus MD [address] [place] [address] documented as of this encounter Visit Diagnoses Not on filedocumented in this encounter Additional Health Concerns AssessmentNoted TimePHQ-9 Depression Total Score: 2:00 PM EST documented as of this encounter Care Teams Team MemberRelationshipSpecialtyStart DateEnd Date No [place]cp, [place] [id number] PCP - GeneralFamily Oteenfom90/26/25documented as of this encounter
--- OUTSIDE RECORDS SUMMARY | 2025-07-08 22:13 | XMS_ITS | Clinical Summary ---
Author Organization [employer] Address [id number] [place] [address] Care Team Providers Care Break Up Worker Name Role Phone No Pcp, No Pcp Primary Care Provider Unavailabl e Allergies Active AllergyReactionsCriticalityNoted GzruBsczrwqfNimbbfgwqxDdvjr44/29/2023 Medications MedicationSigDispense QuantityRefillsLast FilledStart DateEnd DateStatus vit no.124/iron/folic ( VITAMIN ORAL) Take 1 tablet by mouth in the morning.Active pyridoxine, vitamin B6, (B-6) 25 mg tablet Take 1 tablet (25 mg total) by mouth in the morning. 14 tablet 5Active ondansetron ODT (ZOFRAN ODT) 4 mg disintegrating tablet Dissolve 1 tablet (4 mg total) on tongue 3 (three) times a day as needed for nausea for up to 3 doses. 3 tablet 5Active promethazine (PHENERGAN) 25 mg suppository Insert 1 suppository (25 mg total) into the rectum every 6 (six) hours as needed for nausea or vomiting. 12 each 5Active ondansetron ODT (ZOFRAN ODT) 4 mg disintegrating tablet Dissolve 1 tablet (4 mg total) on tongue every 8 (eight) hours as needed for nausea or vomiting. 20 tablet 5Active doxylamine (UNISOM) 25 mg tablet Take 1 tablet (25 mg total) by mouth nightly as needed for nausea for up to 14 days. 14 tablet Expired cetirizine (ZyrTEC) 10 mg tablet Take 1 tablet (10 mg total) by mouth daily as needed for rhinitis for up to 5 days. 5 tablet 5108/13/2024Expired azithromycin (ZITHROMAX) 500 mg tablet Take 2 tablets (1,000 mg total) by mouth in the morning for 1 day. 2 tablet /Expired Active Problems ProblemNoted DateDiagnosed DateGonorrhea complicating , first trimester 07/03/2025 Overview (07/03/2025): Rec.'d azithromycin 1gm Rx. And gentamicin 240mg IM on L&D 07/03/2025 Waismgktmyc26/26/2025Hx of one ekejghacvdt83/26/2025Genital herpes simplex virus (HSV) infection in mother affecting agmmxaeyq52/26/2025Estimated Date of TelghpstRyotfutcYxk00/25/2026ased on Ultrasound Encounters DateTypeDepartmentCare MeccWvwzdbsxygr93/27/2025 9:25 PM EST - 07/08/2025 9:31 PM ESTEmergency [facility] - Emergency [address] [place] [phone] Discharge Disposition: Left Without Vtbttvaai13/27/2099Obugdc36/22/2025 4:54 PM EST - 07/03/2025 7:07 PM ESTHospital Encounter [facility] - [facility] [address] [place] [phone] Silvana Barnes, SERVER DEVELOPER-CNM Discharge Disposition: Home07/03/2025 12:50 PM EST - 07/03/2025 1:32 PM EST Hospital Encounter [facility] - [facility] [address] [place] [phone] Silvana Barnes, SERVER DEVELOPER-CNM Discharge Disposition: Home07/03/2025Orders Only [facility]Gynecology [address] [place] [address] Berta Titus MD 07/03/2025Results Follow-Up [facility]Gynecology [address] [place] [address] Berta Titus MD Thin Prep Pap Test, Chlamydia/Gonorrhoeae by PCR, Fluid06/27/2025 2:00 PM EST Initial [facility]necology [address] [place] [address] Berta Titus MD GA: 8w3d06/27/20257539Xszmfh98/11/2025bstract [facility]Gynecology [address] [place] [address] Berta Perkins RN 06/16/2025 10:15 AM EST - 06/16/2025 11:59 PM ESTHospital Encounter [facility] - Ultrasound [address] [place] [address] Marsha Knight, SERVER DEVELOPER-[facility] care, first trimester Discharge Disposition: Home06/16/2025Results Follow-Up [facility]Gynecology [address] [place] [address] Silvana Barnes, SERVER DEVELOPER-[facility] Ultrasound less than 14 weeks with /04/2025Travel 06/11/2025 12:01 PM EST - 06/11/2025 1:27 [facility] [address] [place] [address] Mukul Elaine MD Nausea and vomiting, unspecified vomiting type (Primary Dx) Discharge Disposition: Home06/11/20256151Tbbqde74/26/2025 2:42 PM EST - 06/07/2025 4:[facility] [address] [place] [address] Buchwalder, Dev J, DO Nausea (Primary Dx); Upper respiratory tract infection, unspecified type Discharge Disposition: Home06/07/2025 10:45 AM ESTTelemedicine [facility] [address] [place] [address] Marsha Knight, SERVER DEVELOPER-RADIAGRAPH OPERATOR care, first trimester (Primary Dx)06/07/2025Travelfrom Last 3 Months Family History Medical HistoryRelationNameCommentsHypertensionFatherHypertensionMotherRelation NameStatusCommentsFatherMother Social History Tobacco UseTypesPacks/DayYears UsedDateSmoking Tobacco: NeverSmokeless Tobacco: Never Tobacco Cessation:Counseling Given: Not Answered Alcohol UseStandard Drinks/WeekCommentsNever0 (1 standard drink = 0.6 oz pure alcohol)PHQ-2AnswerDate RecordedTotal Jftqi24208/28/2024Overall Financial Resource Strain (CARDIA)AnswerDate RecordedHow hard is it for you to pay for the very basics like food, housing, medical care, and heating?Not hard at all06/27/2025 Housing InstabilityAnswerDate RecordedAre you worried or concerned that in the next two months you may not have stable housing that you own, rent or stay in as a part of a household?No06/27/2025hildcareAnswerDate RecordedDo problems getting child psychiatrist make it difficult for you to work or study?No06/27/2025 EmploymentAnswerDate JordsiubGlujlsiyoqLtdpcwq44/12/2019Hunger ScreeningAnswer Date RecordedWithin the past 12 months we worried whether our food would run out before we got money to buy more.Never True07/08/2025Within the past 12 months the food we bought just didn't last and we didn't have money to get more.Never True07/08/2025Estimated Date of AdkrefrcVzdarshsFdz67/25/2026Based on UltrasoundSex and Gender InformationValueDate RecordedSex Assigned at BirthNot on fileLegal FnkCboibx36/06/2015 12:02 PM EDTGender IdentityNot on fileSexual OrientationNot on file Last Filed Vital Signs Vital SignReadingTime TakenCommentsBlood Xwqnkqcu969/6412/ 7:38 PM EST Dveun85475/27/2025 7:38 PM TIPXlbcbfndmrh61.1 ??C (98.8 ??F)07/08/2025 7:38 PM ESTRespiratory Vhcq106709/08/2024 7:38 PM ESTOxygen Cioiicjnde17%07/08/2025 7:38 PM ESTInhaled Oxygen Concentration--Nvllxe84 kg (150 lb)07/08/2025 7:38 PM EST Oedwlp234.1 cm (5' 5 )07/08/2025 7:38 PM ESTBody Mass Index24.9607/08/2025 7:38 PM EST Plan of Treatment DateTypeDepartmentCare Team (Latest Contact Info)Llweiumkdmy11/13/2026 2:45 PM ESTRoutine [facility] [address] [phone] Berta Titus MD [address] [place], [place] [id number] Health MaintenanceDue DateLast DoneCommentsInfluenza Nfwwlsi2903/13/2025 07/23/2024, 09/29/2017, 06/13/2005, Additional history existsChlamydia Screening , 10/07/2024, 09/29/2024, Additional history exists Depression Pashupgji33dult BMI Zhtzqgmwo13 Tobacco Qhgoslals87DTaP,Tdap and Td Vaccines (7 - Td or Tdap) , 01/30/2009, 08/19/2006, Additional history existsPap Smear RSV ( or age 60+ yrs) (No Doses Required)Completed Medical Devices Not on file Procedures Procedure NamePriorityDate/TimeAssociated DiagnosisCommentsTHIN PREP PAP TEST Cbsimjl5006/27/2025 3:32 PM EST Cervical smear, as part of routine gynecological examination CHLAMYDIA/GONORRHOEAE BY PCR, TDXTFYlenxih09/16/2025 3:32 PM EST Cervical smear, as part of routine gynecological examination US PREG LESS THAN 14 WKS WITH XFTTWKVUURULPygbrkw08/05/2025 10:41 AM EST care, first trimester POCT NURSING URINE MACROSCOPIC CCJsunuoy17/30/2025 12:59 PM EST ER EXTRA URINE OFJLMUNATG09/30/2025 12:53 PM EST ER EXTRA URINE MCBDHVGHEGK94/30/2025 12:53 PM EST ER EXTRA BKJIKYALT65/30/2025 12:53 PM EST SARS/FLU A+B/RSV BY NAAT/MOLECULAR (M4RT COLLECTION TUBE)STAT108/07/2024 2:59 PM EST from Last 3 Months Results * (ABNORMAL) Chlamydia/Gonorrhoeae by PCR, Fluid (06/27/2025 3:32 PM EST) ComponentValueRef RangeTest MethodAnalysis TimePerformed AtPathologist SignatureCHLAMYDIA PCR, IKSrhegbhbIbshxcct76/17/2025 11:32 AM [facility]ORATORYComment:Chlamydia trachomatis not detected by nucleic acid amplification. This does not exclude the possibility of infection because results are dependent on adequate specimen collection.GONORRHOEAE PCR, FLPositive(A)Smfqpdzx44/17/2025 11:32 AM [facility]ATORYComment:Neisseria gonorrhoeae detected by nucleic acid amplification.Specimen (Source)Anatomical Location / LateralityCollection Method / VolumeCollection TimeReceived TimeThin Prep (Cervix/Endocervix) 06/27/2025 3:32 PM EST06/28/2025 5:29 AM EST Narrative Authorizing ProviderResult TypeResult StatusCorie Hang Titus MDMICROBIOLOGY - GENERAL ORDERABLESFinal ResultPerforming OrganizationAddressCity/State/ZIP Code Phone Number [facility] [address] [place] [address], * Thin Prep Pap Test (06/27/2025 3:32 PM EST)ComponentValueRef RangeTest Method Analysis TimePerformed AtPathologist SignatureCase ReportGynecologic Cytology Report ? Case: [id number] ? Authorizing Provider: ??Berta Titus MD ? Collected: ? 06/27/2025 1532 ? Ordering Location: ? [facility] ? Received: ?06/27/2025 1532 ? Obstetrics/Gynecology ? First Screen: ?DHRUV Hoover(ASCP) ? Specimen: ?Thin Prep Pap, Cervix/Endocervix ? 06/28/2025 1:44 PM [facility] LABORATORYSpecimen Adequacy Satisfactory for evaluation, endocervical/transformation zone component present 06/28/2025 1:44 PM [facility]ATORYComment:Excessive thickness and partially obscuring bacteria.InterpretationNEGATIVE FOR INTRAEPITHELIAL LESION OR VDZKHRGPNW64/17/2025 1:44 PM [facility] at 1344 ESTOther FindingsShift in rubin suggestive of bacterial vaginosis. 06/28/2025 1:44 PM [facility]ORATORYComment: This ThinPrep slide could not be successfully imaged by the [employer] ThinPrep Imaging System so it was manually screened. Additional InformationThe Pap test is a screening test with an inherent, but low, probability of error. The Pap test is primarily effective for the diagnosis and prevention of squamous cell carcinoma. Regular screening iscritical for prevention. ThinPrep liquid-based slides, which meet the Merch[employer]ising [employer] Associate criteria for automated screening, have been screened by the ThinPrep Imaging System (as of 03/29/07) along with an additional manual rescreening by a cuff stitcher and, if indicated, by a pathologist.06/28/2025 1:44 PM [facility]ORATORYClinical ImiysrjiuvpHntl07/17/2025 1:44 PM [facility] LABORATORYEmbedded Rpbjfh9606/28/2025 1:44 PM [facility] LABORATORYSpecimen (Source)Anatomical Location / LateralityCollection Method / VolumeCollection TimeReceived TimeThin Prep (Cervix/Endocervix)06/27/2025 3:32 PM EST06/27/2025 3:32 PM EST Narrative Authorizing ProviderResult TypeResult StatusCorie Hang Titus MDPATHOLOGY/CYTOLOGY ORDERABLESFinal ResultPerforming OrganizationAddressCity/State/ZIP CodePhone Number [facility] [address] [place] [address], [place] [phone] * Ultrasound less than 14 weeks with transvaginal (06/16/2025 10:41 AM EST)Anatomical RegionLateralityModalityOB-GYNUltrasoundSpecimen (Source) Anatomical Location / LateralityCollection Method / VolumeCollection Time Received Time06/16/2025 11:24 AM EST Narrative 06/16/2025 11:25 AM EST US PREG LESS THAN 14 WKS WITH TRANSVAGINAL: 06/16/2025 10:15 AM Clinical: Check dates and viability. Real-time transabdominal and transvaginal sonography pelvis performed.. No comparison. There is a single intrauterine with cardiac activity 129 beats per minute. [place]-rump length of ??9 mm ??corresponds to 6 weeks 6 day gestation. Amount amniotic fluid is normal. Placenta not well seen due to early gestational age. Maternal ovaries are unremarkable. Trace cul-de-sac fluid seen. Impression: * ??Single intrauterine 6 weeks 6 day gestation with cardiac activity. * ??Ultrasound YUDI 02/03/2026 Finalized by Anupam Peters MD on 06/16/2025 11:25 AM Procedure Note Anupam Peters MD - 06/16/2025 US PREG LESS THAN 14 WKS WITH TRANSVAGINAL: 06/16/2025 10:15 AM Clinical: Check dates and viability. Real-time transabdominal and transvaginal sonography pelvis performed.. No comparison. There is a single intrauterine with cardiac activity 129 beatsper minute. [place]-rump length of 9 mm corresponds to 6 weeks 6 day gestation. Amount amniotic fluid is normal. Placenta not well seen due to early gestational age. Maternal ovaries are unremarkable. Trace cul-de-sac fluid seen. Impression: * Single intrauterine 6 weeks 6 day gestation with cardiacactivity. * Ultrasound YUDI 02/03/2026 Finalized by Anupam Peters MD on 06/16/2025 11:25 AM Authorizing ProviderResult TypeResult Agnes Knight SERVER DEVELOPER-CNPIMG US ORDERABLESFinal Result * (ABNORMAL) POCT Nursing Urine Macroscopic UA (06/11/2025 12:59 PM EST) ComponentValueRef RangeTest MethodAnalysis TimePerformed AtPathologist [facility] Urine Specific Gravity1.0251.010, 1.015, 1.020, 1.4558806/11/2025 1:01 PM ESTPROKAISER M[facility]Z [facility] Urine Leukocyte Esterase Trace(A)Sceeygwe50/30/2025 1:01 PM ESTPROKAISER MARTINEZ [facility] Urine EieviuuGtmdqkwvFwvdzbsc41/30/2025 1:01 PM [facility] Urine pH6.05.0, 6.0, 6.5, 7.0, 7.5, 8.0, 8.5, 5. 1:01 PM [facility]rine Hjrdoeh051 mg/dL(A)Negative 06/11/2025 1:01 PM [facility] Urine Glucose EmocmpnaFqhiasus67/30/2025 1:01 PM [facility] Urine Ketones>=160 mg/dL(A)Oyqpifwu55/30/2025 1:01 PM [facility] Urine Urobilinogen0.2 E.U./dL06/11/2025 1:01 PM EST [facility] Urine BilirubinSmall(A)Negative 06/11/2025 1:01 PM [facility] Urine Blood/HGB Trace(A)Rbhjekcu35/30/2025 1:01 PM [facility] Specimen (Source)Anatomical Location / LateralityCollection Method / Volume Collection TimeReceived SnqeIhgpy90/30/2025 12:59 PM EST06/11/2025 1:01 PM EST Narrative Authorizing ProviderResult TypeResult Lew Elaine MDPOINT OF CARE TEST ORDERABLESFinal ResultPerforming OrganizationAddressCity/State/ZIP CodePhone Number [facility] [address] [place] [address], * Extra Urine [place] (06/11/2025 12:53 PM EST)ComponentValueRef RangeTest Method Analysis TimePerformed AtPathologist SignatureExtra TubeAuto Resulted 06/11/2025 2:01 PM [facility] (Source) Anatomical Location / LateralityCollection Method / VolumeCollection Time Received TimeUrineUrine specimen collection, clean catch / Etqsnxo2706/11/2025 12:53 PM EST06/11/2025 1:23 PM EST Narrative Authorizing ProviderResult TypeResult StatusMukul KOENIG ORDERABLES Final ResultPerforming OrganizationAddTrinity Healthty/State/ZIP CodePhone Number [address] [address], * Extra Urine Culture (06/11/2025 12:53 PM EST)ComponentValueRef RangeTest MethodAnalysis TimePerformed AtPathologist SignatureExtra TubeAuto Resulted 06/11/2025 2:01 PM ESTUniversity [facility] (Source) Anatomical Location / LateralityCollection Method / VolumeCollection Time Received TimeUrineUrine specimen collection, clean catch / Gcjqtck5006/11/2025 12:53 PM EST06/11/2025 1:23 PM EST Narrative Authorizing ProviderResult TypeResult StatusMukul KOENIG ORDERABLES Final ResultPerforming OrganizationAddressty/State/ZIP CodePhone Number [address] [place] [address], * Extra Urine (06/11/2025 12:53 PM EST)ComponentValueRef RangeTest Method Analysis TimePerformed AtPathologist SignatureExtra TubeAuto Resulted 06/11/2025 2:01 PM ESTUniversity [facility] (Source) Anatomical Location / LateralityCollection Method / VolumeCollection Time Received TimeUrineUrine specimen collection, clean catch / Mypsacy8306/11/2025 12:53 PM EST06/11/2025 1:23 PM EST Narrative Authorizing ProviderResult TypeResult Lew KOENIG ORDERABLES Final ResultPerforming OrganizationAddTrinity Healthty/State/ZIP CodePhone Number [address] [place] [address], [place] * SARS/FLU A+B/RSV by NAAT/Molecular (M4RT Collection Tube) (06/07/2025 2:59 PM EST)ComponentValueRef RangeTest MethodAnalysis TimePerformed AtPathologist SignatureFLU A OBVVhhmzrxkZbexjoje94/26/2025 3:47 PM ESTPROST. JOSEPH'S HOSPITALFLU B VSKIjvrwzrkXokiwrjy83/26/2025 3:47 PM ESTPROST. JOSEPH'S HOSPITALRSV BY BYZIbctwgqvAvlvtclg13/26/2025 3:47 PM EST [facility] COV 2 BY PCRNot DetectedNot Detected 06/07/2025 3:47 PM ESTPROMEDICA KAISER PERMANENTE MEDICAL CENTERpecimen (Source) Anatomical Location / LateralityCollection Method / VolumeCollection Time Received TimeSwabNasopharyngeal structure / Raglncg4706/07/2025 2:59 PM EST 06/07/2025 3:09 PM EST Narrative [facility] - 06/07/2025 3:47 PM EST The Xpert Xpress SARS-CoV-2/Flu/RSV Plus test is a rapid, multiplexed real-time RT-PCR test intended for the simultaneous qualitative detection and differentiation of SARS-CoV-2, influenza A, influenza B and respiratory syncytial virus (RSV) viral RNA from individuals suspected of respiratory viral infection consistent with COVID-19 by Their healthcare provider. This test has not been validated in asymptomatic patients. The Xpert Xpress SARS-CoV-2 test is intended for use by qualified and trained operators who are performing tests using either [employer] or [employer] systems and is limited to laboratories that meet the CLIA requirements to perform high and moderate complexity tests. Results are for the simultaneous detection and differentiation of SARS-CoV-2, influenza A, influenza B and RSV nucleic acids in clinical specimens. SARS-CoV-2, influenza A, influenza B and RSV RNA identified by this test are generally detectable in upper respiratory samples during the acute phase of infection. Positive results are Indicative of the presence of the identified virus, but do not rule out bacterial infection or co-infection with other pathogens not detected by this test. Clinical correlation with patient history and other diagnostic information is necessary to determine patient infection status. The agent detected may not be the definite cause of disease. Negative results do not preclude SARS-CoV-2, influenza A, influenza B and RSV infection and should not be used as the sole basis for treatment or other patient management decisions. Negative results must be combined with clinical observations, patient history and epidemiological information. An Invalid result may occur with specimen-associated inhibition unable to be resolved with specimen repeat. Authorizing ProviderResult TypeResult StatusDev Bailey [facility]USROBIOLOGY - GENERAL ORDERABLESFinal ResultPerforming OrganizationAddressCity/State/ZIP CodePhone Number [facility] [address] [place] [address], from Last 3 Months Insurance Care Teams Team MemberRelationshipSpecialtyStart DateEnd Date No Pcp, [place] [address] PCP - GeneralFamily Owevrwek21/26/25
--- OUTSIDE RECORDS SUMMARY | 2025-07-08 22:13 | XMS_ITS | Encounter Summary ---
Author Organization [employer] s tem Address [id number] [address] [place] [address] Care Team Providers Care Systems Mgr Name Role Phone No Pcp, No Pcp Primary Care Provider Unavailabl e Encounter Details DateTypeDepartmentCare Team (Latest Contact Info)Uqhwufkzlhm26/16/2025Travel Social History Tobacco UseTypesPacks/DayYears UsedDateSmoking Tobacco: NeverSmokeless Tobacco: NeverAlcohol UseStandard Drinks/WeekCommentsNever0 (1 standard drink = 0.6 oz pure alcohol)PHQ-2AnswerDate RecordedTotal Lrksb80608/28/2024Overall Financial Resource Strain (CARDIA)AnswerDate RecordedHow hard is it for you to pay for the very basics like food, housing, medical care, and heating?Not hard at all 06/27/2025Housing InstabilityAnswerDate RecordedAre you worried or concerned that in the next two months you may not have stable housing that you own, rent or stay in as a part of a household?No06/27/2025hildcareAnswerDate RecordedDo problems getting child welfare manager make it difficult for you to work or study?No 06/27/2025EmploymentAnswerDate MksxyidlPpicccznnhRiqzzrx65/12/2019Hunger ScreeningAnswerDate RecordedWithin the past 12 months we worried whether our food would run out before we got money to buy more.Never True06/27/2025Within the past 12 months the food we bought just didn't last and we didn't have money to get more.Never True06/27/2025Estimated Date of DeliveryCommentsYes 02/03/2026ased on UltrasoundSex and Gender InformationValueDate RecordedSex Assigned at BirthNot on fileLegal ZlyCqjydj75/06/2015 12:02 PM EDTGender IdentityNot on fileSexual OrientationNot on filedocumented as of this encounter Plan of Treatment DateTypeDepartmentCare Team (Latest Contact Info)Ehywtpzogpw27/13/2026 2:45 PM ESTRoutine [facility]necology [address] [place] [address] Berta Titus MD [address] [place] [address] documented as of this encounter Visit Diagnoses Not on filedocumented in this encounter Additional Health Concerns AssessmentNoted TimePHQ-9 Depression Total Score: 2:00 PM EST documented as of this encounter Care Teams Team MemberRelationshipSpecialtyStart DateEnd Date No Pcp, [place] [address] PCP - GeneralFamily Urdsmseq84/26/25documented as of this encounter
--- OUTSIDE RECORDS SUMMARY | 2025-07-08 22:13 | XMS_ITS | Encounter Summary ---
Author Organization [employer] [facility] Address [id number] [address] [place] [address] Care Team Providers Care Teaching Music Lessons Name Role Phone No Pcp, No Pcp Primary Care Provider Unavailabl e Encounter Details DateTypeDepartmentCare Team (Latest Contact Info)Wpkpyrmlmqs73/27/2025Travel Social History Tobacco UseTypesPacks/DayYears UsedDateSmoking Tobacco: NeverSmokeless Tobacco: NeverAlcohol UseStandard Drinks/WeekCommentsNever0 (1 standard drink = 0.6 oz pure alcohol)PHQ-2AnswerDate RecordedTotal Ihxyu12708/28/2024Overall Financial Resource Strain (CARDIA)AnswerDate RecordedHow hard is it for you to pay for the very basics like food, housing, medical care, and heating?Not hard at all 06/27/2025Housing InstabilityAnswerDate RecordedAre you worried or concerned that in the next two months you may not have stable housing that you own, rent or stay in as a part of a household?No06/27/2025hildcareAnswerDate RecordedDo problems getting child caregiver private home make it difficult for you to work or study?No 06/27/2025EmploymentAnswerDate ZivjaolsIgutvrdrumJxsrtbn02/12/2019Hunger ScreeningAnswerDate RecordedWithin the past 12 months we worried whether our food would run out before we got money to buy more.Never True07/08/2025Within the past 12 months the food we bought just didn't last and we didn't have money to get more.Never True07/08/2025Estimated Date of DeliveryCommentsYes 02/03/2026ased on UltrasoundSex and Gender InformationValueDate RecordedSex Assigned at BirthNot on fileLegal UtbBdnlfi25/06/2015 12:02 PM EDTGender IdentityNot on fileSexual OrientationNot on filedocumented as of this encounter Plan of Treatment DateTypeDepartmentCare Team (Latest Contact Info)Bczswwjllcl29/13/2026 2:45 PM ESTRoutine [facility] [address] [facility] ([place], [place]) [place] [address] Berta Titus MD [address] [facility] ([place], [place]) [place] [address] documented as of this encounter Visit Diagnoses Not on filedocumented in this encounter Additional Health Concerns AssessmentNoted TimePHQ-9 Depression Total Score: 2:00 PM EST documented as of this encounter Care Teams Team MemberRelationshipSpecialtyStart DateEnd Date No Pcp, [place] [id number] PCP - GeneralFamily Bitwfoqa42/26/25documented as of this encounter
[2025-07-08 22:17] VITALS: O2SAT 100
[2025-07-08 22:19] LABS: Glucose Urine UA NEGATIVE (NEGATIVE)
[2025-07-08 22:19] LABS: Hematocrit 37.3 % (36.0-48.0); Hemoglobin 12.5 g/dL (12.0-16.0); Immature Granulocytes Abs Auto 0.05 10^3/uL (0.00-0.03); Immature Granulocytes Pct Auto 0.3 % (0.0-0.5); Lymphocytes Absolute Auto 2.3 10^3/uL (1.2-3.8); Mean Corpuscular HGB Conc 33.5 g/dL (29.9-35.2); Mean Corpuscular Hemoglobin 31.1 pg (26.7-34.0); Mean Corpuscular Volume 92.8 fL (81.0-99.0); Platelet Count 333 10^3/uL (150-450); Red Blood Count 4.02 10^6/uL (4.20-5.40); White Blood Count 14.5 10^3/uL (4.0-11.0)
[2025-07-08 22:25] LABS: Cast Seen? NONE SEEN #/LPF (NONE SEEN); Crystals Seen? None Seen #/HPF (None Seen); Urine Culture Indicated NO
[2025-07-08 22:31] LABS: Alanine Aminotransferase 16 U/L (14-59); Albumin Globulin Ratio 1.0; Albumin Level 4.4 g/dL (3.4-5.0); Alkaline Phosphatase 53 U/L (46-116); Anion Gap 15.5; Aspartate Amino Transferase 16 U/L (15-37); Blood Urea Nitrogen 6.0 mg/dL (7.0-18.0); Calcium 9.8 mg/dL (8.5-10.1); Carbon Dioxide 23.9 mmol/L (21.0-32.0); Chloride 100 mmol/L (98-107); Estimated GFR (African America >60 (>=60 mL/min/1.73m^2); Estimated GFR (Non-African Ame >60 (>=60 mL/min/1.73m^2); Globulin 4.2 g/dL; Glucose 85 mg/dL (74-106); Lipase 73.0 U/L (16.0-77.0); Potassium 3.4 mmol/L (3.5-5.1); Sodium 136 mmol/L (136-145); Total Protein 8.6 g/dL (6.4-8.2)
--- NOTE | 2025-07-08 22:52 | ED_ITS ---
HPI - General Chief complaint: Nausea/Vomiting/Diarrhea Stated complaint: VOMITING, WEAKNESS, 10 WEEKS Time Seen by Provider: 07/08/25 21:58 Source: patient Mode of arrival: walk-in Limitations: no limitations History of Present Illness HPI Narrative: cc - vomiting in Patient is approximately 10 weeks . She says that for the last 4 days she has been unable to keep down any fluids or food other than water. She denied any urinary symptoms. She denied any cough or cold symptoms. She denied any flulike symptoms. She had been evaluated earlier in the month and prescribed Reglan and Zofran to take at home. She said she has been trying to use those but it has not been helping. 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 [facility] Related Data Home Medications ?Medication ?Instructions ?Recorded ?Confirmed vit no.95-ferrous 1 tab PO DAILY 07/08/25 fumarate 28 mg-folic acid 800 mcg tablet () Previous Rx's ?Medication ?Instructions ?Recorded metoclopramide HCl 10 mg tablet 10 mg PO Q6H PRN nause a and 06/14/25 vomiting #20 tabs ondansetron 4 mg disintegrating 4 mg PO Q6H PRN nausea and 06/14/25 tablet vomiting #20 tabs Allergies Allergy/AdvReac Type Severity Reaction Status Date / Time No Known Drug Allergies Allergy Verified 06/14/25 16:32 PFSH PFSH Social History Little interest or pleasure in doing things: not at all Feeling down, depressed, or hopeless: not at all Exam Narrative Exam Narrative: Nurses notes and vital signs reviewed and patient is not hypoxic. afebrile General: Well-appearing and in no apparent distress. Skin: Warm, dry, no pallor noted. Neck: Supple, non-tender. No meningismus. Eye: Pupils are equal, round and EOMI. No scleral icterus. Ears, Nose, Mouth, and Throat: Oral mucosa is dry Cardiovascular: Regular Rate and Rhythm without murmur, gallop or rub. Respiratory: No accessory muscle use or respiratory distress. Lungs are clear to auscultation, no wheezing, rales or rhonchi Back: No CVA tenderness Musculoskeletal: normal ROM, no calf or popliteal tenderness, no lower extremity edema/swelling GI: Abdomen is soft, non-distended. Normal bowel sounds. No tenderness to palpation. No rebound, guarding, or rigidity noted. Neurological: A&O x4. No cranial nerve dysfunction observed. No truncal ataxia. Moves all extremities. Sensation intact. Psychiatric: Cooperative and interactive. Normal mood and affect. Constitutional Vital Signs, click to edit/add: Last Vital Signs Temp 98.4 F 07/08/25 21:59 Pulse 77 07/08/25 21:59 Resp 18 07/08/25 21:59 BP 141/73 07/08/25 21:59 Pulse Ox 100 07/08/25 22:17 O2 Del Method Room Air 07/08/25 22:17 Course Vital Signs Vital signs: Vital Signs Temperature 98.4 F 07/08/25 21:59 Pulse Rate 77 07/08/25 21:59 Respiratory Rate 18 07/08/25 21:59 Blood Pressure 141/73 07/08/25 21:59 Pulse Oximetry 99 07/08/25 21:59 Oxygen Delivery Method Room Air 07/08/25 21:59 Temperature 98.4 F 07/08/25 21:59 Pulse Rate 77 07/08/25 21:59 Respiratory Rate 18 07/08/25 21:59 Blood Pressure 141/73 07/08/25 21:59 Pulse Oximetry 100 07/08/25 22:17 Oxygen Delivery Method Room Air 07/08/25 22:17 MDM - OB/Uterine Contractions MDM Narrative Medical decision making narrative: Peripheral IV established blood drawn and sent for testing. Urine was ordered to be obtained and sent for testing. The patient was given a liter of normal saline IV fluid and IV Zofran. After the first liter of saline was completed a second was ordered to be given. Patient has leukocytosis with a white count of 14.5, left shift is noted. CMP is unremarkable. Urinalysis is negative for infection. No culture is indicated. Patient felt better after ED treatment. She was discharged home after second liter of normal saline IV fluid was given. Lab Data Attestation: I reviewed the patient's lab results. Labs: Lab Results 07/08/25 07/08/25 Range/Units 22:10 22:11 WBC 14.5 H (4.0-11.0) 10^3/uL RBC 4.02 L (4.20-5.40) 10^6/uL Hgb 12.5 (12.0-16.0) g/dL Hct 37.3 (36.0-48.0) % MCV 92.8 (81.0-99.0) fL MCH 31.1 (26.7-34.0) pg MCHC 33.5 (29.9-35.2) g/dL RDW 11.9 (11.0-15.0) % Plt Count 333 (150-450) 10^3/uL MPV 9.6 (9.5-13.5) fL Neut % (Auto) 78.7 H (43.0-75.0) % Lymph % (Auto) 15.9 L (20.5-60.0) % Ida % (Auto) 4.4 (1.7-12.0) % Eos % (Auto) 0.3 L (0.9-7.0) % Baso % (Auto) 0.4 (0.2-2.0) % Neut # (Auto) 11.4 H (1.4-6.5) 10^3/uL Lymph # (Auto) 2.3 (1.2-3.8) 10^3/uL Ida # (Auto) 0.6 (0.3-0.8) 10^3/uL Eos # (Auto) 0.1 (0.0-0.7) 10^3/uL Baso # (Auto) 0.1 (0.0-0.1) 10^3/uL Abs Immat Gran (auto) 0.05 H (0.00-0.03) 10^3/uL Imm/Tot Granulo (auto) 0.3 (0.0-0.5) % Sodium 136 (136-145) mmol/L Potassium 3.4 L (3.5-5.1) mmol/L Chloride 100 (98-107) mmol/L Carbon Dioxide 23.9 (21.0-32.0) mmol/L Anion Gap 15.5 BUN 6.0 L (7.0-18.0) mg/dL Creatinine 0.69 (0.55-1.02) mg/dL Est GFR ( Amer) >60 (>=60 mL/min/1.73m^2) Est GFR (Non-Af Amer) >60 (>=60 mL/min/1.73m^2) BUN/Creatinine Ratio 8.7 Glucose 85 (74-106) mg/dL Calcium 9.8 (8.5-10.1) mg/dL Total Bilirubin 0.7 (0.2-1.0) mg/dL AST 16 (15-37) U/L ALT 16 (14-59) U/L Alkaline Phosphatase 53 (46-116) U/L Total Protein 8.6 H (6.4-8.2) g/dL Albumin 4.4 (3.4-5.0) g/dL Globulin 4.2 g/dL Albumin/Globulin Ratio 1.0 Lipase 73.0 (16.0-77.0) U/L Urine Color Yellow (YELLOW) Urine Clarity Sl cloudy (CLEAR) Urine pH 6.0 (5.0-9.0) Ur Specific Cushing >=1.030 A (1.005-1.025) Urine Protein 100 A (NEG/TRACE) mg/dL Urine Glucose (UA) Negative (NEGATIVE) mg/dL Urine Ketones >=80 A (NEGATIVE) mg/dL Urine Occult Blood Negative (NEGATIVE) Urine Nitrite Negative (NEGATIVE) Urine Bilirubin Small A (NEGATIVE) Urine Urobilinogen 0.2 (0.2-1.0) EU/dL Ur Leukocyte Esterase Negative (NEGATIVE) Urine RBC None seen (0-2) #/HPF Urine WBC 0-2 A (NONE SEEN) #/HPF Ur Squamous Epith Cells Many A (NONE/RARE) #/LPF Urine Crystals None seen (None Seen) #/HPF Urine Bacteria Trace A (NONE SEEN) #/HPF Urine Casts None seen (NONE SEEN) #/LPF Urine Mucus Large A (NONE SEEN) Ur Culture Indicated? No Discharge Plan Discharge Chief Complaint: Nausea/Vomiting/Diarrhea Clinical Impression: Vomiting affecting Patient Disposition: Home, Self-Care Time of Disposition Decision: 22:55 Prescriptions / Home Meds: No Action ondansetron 4 mg tablet,disintegrating 4 mg PO Q6H PRN (Reason: nausea and vomiting) Qty: 20 0RF metoclopramide HCl 10 mg tablet 10 mg PO Q6H PRN (Reason: nausea and vomiting) Qty: 20 0RF PNV no.95-ferrous fumarate-FA [] 28 mg iron- 800 mcg tablet 1 tab PO DAILY Print Language: Hebrew Instructions: Nausea and Vomiting in (ED) Referrals: Physician,Non-Staff, MD [Primary Care Provider] - 1 week
[2025-07-08] MEDS: POTASSIUM CHLORIDE 10 MEQ ER TABLET 40 MEQ PO (22:57)
[2025-07-09 00:09] VITALS: BP 126/78; PULSE 87; O2SAT 100
== END 2025-07-09 00:17 | disposition home or self-care (01) ==
PROVIDERS: Emergency Provider Emergency Medicine
DX: O21.8 Other vomiting complicating pregnancy (principal)
CPT/HCPCS: 36415; 80053; 81001; 83690; 85025; 96361; 96374; 99285; J2405